=== PATIENT | male | born 1955 | race Caucasian/White ===

== ENCOUNTER 2016-06-02 10:21 | Emergency (ER) | payer OTHER ==
[2016-06-02] MEDS ORDERED: ASPIRIN 81 MG CHEW TABLET As Ordered ONE (11:21)
[2016-06-02 11:31] LABS: BASO % 0.7 % (0.0-1.0); EOS # 0.1 K/mm3 (0.0-0.50); EOS % 2.6 % (0.0-3.0); LARGE UNSTAINED CELL # 0.1 K/mm3 (0.0-0.4); LARGE UNSTAINED CELL % 2.9 % (0.0-4.0); LYMPH # 1.2 K/mm3 (1.5-4.5); MEAN CORPUSCULAR HEMOGLOBIN 28.9 pg (27.0-33.0); MEAN CORPUSCULAR HGB CONC 33.8 g/dl (32.0-36.5); MEAN CORPUSCULAR VOLUME 85.5 fl (80.0-96.0); MONO # 0.3 K/mm3 (0.0-0.8); MONO % 6.4 % (0.0-5.0); NEUTROPHILS # 2.5 K/mm3 (1.8-7.7); NEUTROPHILS % 58.4 % (36.0-66.0); PLATELET COUNT, AUTOMATED 204 k/mm3 (150-450); WHITE BLOOD COUNT 4.2 K/mm3 (4.0-10.0)
[2016-06-02 11:37] LABS: ANION GAP 9 MEQ/L (8-16); BLOOD UREA NITROGEN 15 MG/DL (7-18); CALCIUM LEVEL 8.9 MG/DL (8.8-10.2); CARBON DIOXIDE LEVEL 25 MEQ/L (21-32); CHLORIDE LEVEL 110 MEQ/L (98-107); CREATININE FOR GFR 1.06 MG/DL (0.70-1.30); GLOMERULAR FILTRATION RATE > 60.0 (>49); GLUCOSE, FASTING 101 MG/DL (80-110); INR 0.99; POTASSIUM SERUM 4.2 MEQ/L (3.5-5.1); SODIUM LEVEL 144 MEQ/L (136-145)
[2016-06-02] MEDS ORDERED: CLOPIDOGREL 300 MG TAB (PLAVIX) As Ordered ONE (12:27)
--- NOTE | 2016-06-02 12:50 | REP ---
PORTABLE CHEST: AP portable view of the chest is performed. COMPARISON: 02/15/2014 Mild bibasilar fibrotic changes are stable without evidence of acute infiltrate or pulmonary edema. The heart is normal in size. The mediastinal silhouette is unchanged. There are degenerative changes of the spine. IMPRESSION: No acute pulmonary disease. Signed by Santy Sanchez MD 06/02/2016 07:39 P
--- NOTE | 2016-06-02 14:12 | EDDOCDS ---
Nurse's Notes [facility] Name: Yaya Burton Age: 60 yrs Sex: Male : 1955 Arrival Date: 06/02/2016 Time: 10:21 Bed 7 Private MD: Ashley Franks Diagnosis: Unstable angina Presentation: 06/02 10:28 Red Flag criteria, patient assessed and taken directly to a bed. ck1 10:32 Presenting complaint: Patient states: sent from [facility]'s office to r/o MA. Has had jo3 intermittent chest tightness to mid anterior chest since Tuesday. also c/o intermittent nausea. Aspirin was not taken prior to arrival. Adult Sepsis Screening: The patient does not have new or worsening altered mentation. Patient's respiratory rate is less than 22. Systolic blood pressure is greater than 100. Patient has a qSOFA score of 0- Negative Sepsis Screen. Suicide/Homicide risk assessment- the patient denies having any suicidal and/or homicidal ideations and does not present with any other emotional, behavioral or mental health complaints. Status: Patient is not a creative services intern or dependent. Transition of care: patient was not received from another setting of care. 10:32 Acuity: NOHEMY Level 2 jo3 10:32 Method Of Arrival: Walkin/Carried/Asstd jo3 Triage Assessment: 10:35 General: Appears in no apparent distress, Behavior is appropriate for age, cooperative, jo3 pleasant. HIV screening NA for this visit Offered previously. Neurological: Level of Consciousness is awake, alert, Oriented to person, place, time. Respiratory: Airway is patent Respiratory effort is even, unlabored. Historical: - Allergies: cefadroxil; Omnicef; - Home Meds: 1. ranitidine HCl 150 mg Oral tab 1 tab 2 times per day - PMHx: Hiatal Hernia; GERD; - PSHx: Appendectomy; - The history from nurses notes was reviewed: and I agree with what is documented. - Social history: Smoking status: Patient states former smoker of tobacco. No barriers to communication noted, The patient speaks fluent Bolivian, Speaks appropriately for age. - Family history: Not pertinent. - : The pt / caregiver states he / she is not on anticoagulants. Home medication list is obtained from the patient. - Hospitalizations: : No recent hospitalization is reported. - Exposure Risk Screening:: None identified. - Immunization history:: All immunizations up-to-date. - Social history:: the patient is a non-smoker, the patient drinks alcohol. Screenin:23 Screening information is obtained from the patient. Fall risk: No risks identified. ead Assistance ADL's: requires no assistance with activities of daily living. Abuse/DV Screen: The patient / caregiver reports he/she is: not in a situation that causes fear, pain or injury. Nutritional screening: No deficits noted. Advance Directives: Currently, there is no health care proxy. There is no active DNR order. There is no living will. There is no Power of Newspaper Illustrator. home support is adequate. Assessment: 10:59 General: Appears in no apparent distress, comfortable, well nourished, well groomed, ead Behavior is appropriate for age, cooperative, pleasant. Pain: Location: chest Pain currently is 2 out of 10 on a pain scale. Neurological: Level of Consciousness is awake, alert, obeys commands, Oriented to person, place, time, Denies dizziness, headache. Cardiovascular: Capillary refill < 3 seconds in bilateral fingers Heart tones S1 S2 present Rhythm is sinus rhythm No ectopy. Respiratory: Airway is patent Respiratory effort is even, unlabored, Breath sounds are clear bilaterally. Denies shortness of breath. GI: Abdomen is obese, Bowel sounds present X 4 quads. Denies nausea, vomiting, pain. Derm: Skin is pink, warm & dry. 12:34 General: Appears in no apparent distress, comfortable, Behavior is appropriate for age, ead cooperative. Neurological: Level of Consciousness is awake, alert, obeys commands, Oriented to person, place, time. Cardiovascular: Rhythm is sinus bradycardia. Respiratory: Airway is patent Respiratory effort is even, unlabored. Derm: Skin is pink, warm & dry. 12:40 General: this nurse attempted to call nurse to nurse for transfer, nurse unavailable. ead will call back at a later time. 12:50 General: Nurse to nurse given to Lorna Pineda RN at [facility] ead 13:47 General: Appears in no apparent distress, comfortable, Behavior is appropriate for age, ead cooperative, pleasant. Pain: Denies pain. Neurological: Level of Consciousness is awake, alert, obeys commands, Oriented to person, place, time. Cardiovascular: Rhythm is sinus rhythm No ectopy. Chest pain is denied. Respiratory: Respiratory effort is even, unlabored, Denies shortness of breath. Derm: Skin is pink, warm & dry. 14:08 General: Appears in no apparent distress, comfortable, Behavior is appropriate for age, ead cooperative. Neurological: No deficits noted. Respiratory: Airway is patent Respiratory effort is even, unlabored. Derm: Skin is pink, warm & dry. Vital Signs: 10:22 BP 147 / 82; Pulse 70; Resp 16; Temp 97.7; Pulse Ox 98% on R/A; Weight 95.25 kg (R); jrd Height 5 ft. 11 in. (180.34 cm); Pain 2/10; 10:48 BP 148 / 96 (auto/); ead 10:49 Pulse 68 MON; Pulse Ox 96% ; ead 10:52 BP 147 / 97 (auto/); ead 10:55 Pulse 62 MON; Pulse Ox 98% ; ead 11:07 BP 132 / 87 (auto/); ead 11:09 Pulse 64 MON; Pulse Ox 97% ; ead 11:22 BP 136 / 85 (auto/); ead 11:22 Pulse 74 MON; Pulse Ox 95% ; ead 11:37 BP 151 / 101 (auto/); ead 11:37 Pulse 68 MON; Pulse Ox 97% ; ead 11:52 BP 158 / 98 (auto/); ead 11:52 Pulse 68 MON; Pulse Ox 96% ; ead 12:07 BP 151 / 95 (auto/); ead 12:07 Pulse 68 MON; Pulse Ox 97% ; ead 12:24 BP 143 / 90 (auto/); ead 12:24 Pulse 66 MON; Pulse Ox 97% ; ead 13:01 BP 158 / 99 (auto/); ead 13:07 Pulse 82 MON; Pulse Ox 95% ; ead 14:10 BP 144 / 90; Pulse 68; Resp 16; Temp 97.2; Pulse Ox 96% on 3 lpm NC; Pain 0/10; ead 10:22 Body Mass Index 29.29 (95.25 kg, 180.34 cm) [facility] Vitals: 10:22 Log In Time: June 02, 2016 at 10:09. jrd 10:24 RN notified that patient meets Red Flag criteria. jrd ED Course: 10:22 Patient visited by Travon Small PCA. jrd 10:22 Ashley Franks is Private Physician. jrd 10:22 Patient moved to Waiting jrd 10:24 Patient visited by Travon Small PCA. jrd 10:24 Patient moved to Pre RCE jrd 10:26 Annabelle Perez RN is Primary Nurse. jo3 10:26 Didi Hsu RN is Primary Nurse. jo3 10:26 Patient moved to 7 jo3 10:30 The patient / caregiver is instructed regarding the plan of care and ED course. Patient ead has correct armband on for positive identification. Placed in gown. Bed in low position. Call light in reach. Side rails up X2. Adult w/ patient. 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 Pulse ox on. NIBP on. 10:30 No procedures done that require assistance. ead 10:30 O2 via nasal cannula \T\ 3L/min. ead 10:32 EKG done. (by ED staff). Reviewed by Brandon Cervantes MD. nb2 10:34 Triage Initiated jo3 10:40 Patient visited by Kimberly Euceda. nb2 10:58 Brandon Cervantes MD is Attending Physician. pc 10:58 Inserted saline lock: 18 gauge in left antecubital area and blood collected. The ead patient tolerated the procedure well. 11:17 Patient visited by Brandon Cervantes MD. pc 12:18 Patient visited by Didi Hsu RN. ead 12:36 Primary Nurse role handed off by Annabelle Perez RN mcp 13:15 Inserted saline lock: 18 gauge in right antecubital area The patient tolerated the ead procedure well. 13:21 portable chest Returned. EDMS Administered Medications: 11:25 Drug: Aspirin 324 mg [aspirin 81 mg chewable tablet (4 tabs)] Route: PO; ead 12:34 Drug: Plavix - Clopidogrel 300 mg [clopidogrel 300 mg tablet (1 tabs)] Route: PO; ead Order Results: Lab Order: Basic Metabolic Profile; SPEC'M 06/02/16 10:55 Test: GLUCOSE, FASTING; Value: 101; Range: 80-110; Units: MG/DL; Status: F Test: BLOOD UREA NITROGEN; Value: 15; Range: 7-18; Units: MG/DL; Status: F Test: CREATININE FOR GFR; Value: 1.06; Range: 0.70-1.30; Units: MG/DL; Status: F Test: GLOMERULAR FILTRATION RATE; Value: > 60.0; Range: >49; Status: F Test: SODIUM LEVEL; Value: 144; Range: 136-145; Units: MEQ/L; Status: F Test: POTASSIUM SERUM; Value: 4.2; Range: 3.5-5.1; Units: MEQ/L; Status: F Test: CHLORIDE LEVEL; Value: 110; Range: 98-107; Abnormal: Above high normal; Units: MEQ/L; Status: F Test: CARBON DIOXIDE LEVEL; Value: 25; Range: 21-32; Units: MEQ/L; Status: F Test: ANION GAP; Value: 9; Range: 8-16; Units: MEQ/L; Status: F Test: CALCIUM LEVEL; Value: 8.9; Range: 8.8-10.2; Units: MG/DL; Status: F Test Note: ; Units are mL/min/1.73 m2 Chronic Kidney Disease Staging per NKF: Stage I & II GFR >=60 Normal to Mildly Decreased Stage III GFR 30-59 Moderately Decreased Stage IV GFR 15-29 Severely Decreased Stage V GFR <15 Very Little GFR Left ESRD GFR <15 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 Lab Order: CBC with Diff; SPEC'M 06/02/16 10:55 Test: WHITE BLOOD COUNT; Value: 4.2; Range: 4.0-10.0; Units: K/mm3; Status: F Test: RED BLOOD COUNT; Value: 5.22; Range: 4.30-6.10; Units: M/mm3; Status: F Test: HEMOGLOBIN; Value: 15.1; Range: 14.0-18.0; Units: g/dl; Status: F Test: HEMATOCRIT; Value: 44.6; Range: 42.0-52.0; Units: %; Status: F Test: MEAN CORPUSCULAR VOLUME; Value: 85.5; Range: 80.0-96.0; Units: fl; Status: F Test: MEAN CORPUSCULAR HEMOGLOBIN; Value: 28.9; Range: 27.0-33.0; Units: pg; Status: F Test: MEAN CORPUSCULAR HGB CONC; Value: 33.8; Range: 32.0-36.5; Units: g/dl; Status: F Test: RED CELL DISTRIBUTION WIDTH; Value: 12.0; Range: 11.5-14.5; Units: %; Status: F Test: PLATELET COUNT, AUTOMATED; Value: 204; Range: 150-450; Units: k/mm3; Status: F Test: NEUTROPHILS %; Value: 58.4; Range: 36.0-66.0; Units: %; Status: F Test: LYMPH %; Value: 29.0; Range: 24.0-44.0; Units: %; Status: F Test: MONO %; Value: 6.4; Range: 0.0-5.0; Abnormal: Above high normal; Units: %; Status: F Test: EOS %; Value: 2.6; Range: 0.0-3.0; Units: %; Status: F Test: BASO %; Value: 0.7; Range: 0.0-1.0; Units: %; Status: F Test: LARGE UNSTAINED CELL %; Value: 2.9; Range: 0.0-4.0; Units: %; Status: F Test: NEUTROPHILS #; Value: 2.5; Range: 1.8-7.7; Units: K/mm3; Status: F Test: LYMPH #; Value: 1.2; Range: 1.5-4.5; Abnormal: Below low normal; Units: K/mm3; Status: F Test: MONO #; Value: 0.3; Range: 0.0-0.8; Units: K/mm3; Status: F Test: EOS #; Value: 0.1; Range: 0.0-0.50; Units: K/mm3; Status: F Test: BASO #; Value: 0.0; Range: 0.0-0.2; Units: K/mm3; Status: F Test: LARGE UNSTAINED CELL #; Value: 0.1; Range: 0.0-0.4; Units: K/mm3; Status: F Lab Order: Cardiac Injury Profile; SPEC'M 06/02/16 10:55 Test: CPK CREATINE PHOSPHOKINASE; Value: 131; Range: 39-308; Units: U/L; Status: F Test: CK-MB VALUE MASS; Value: 2.5; Range: 0.0-3.6; Units: NG/ML; Status: F Test: MB/CK RELATIVE INDEX; Value: 1.90; Range: < OR =4; Status: F Test Note: ; DIAGNOSIS CRITERIA MMB ng/ml Relative Index (RI) NON-AMI < or = 5 N/A LUIS ZONE > 5 < or = 4 AMI > 5 > 4 Lab Order: Troponin; SPEC'M 06/02/16 10:55 Test: TROPONIN I; Value: < 0.02; Range: < 0.10; Units: NG/ML; Status: F Test Note: ; Troponin I Reference Interval for Blurr LOCI: 99th Percentile= 0.00-0.045 ng/ml Risk Stratification: <= 0.10 ng/ml Decreased Risk for Adverse Clinical Events. 0.10-1.50 ng/ml Increased Risk for Adverse Clinical Events. Evaluation of additional criterion and/or repeat testing in 2-6 hours is suggested to rule out myocardial damage. >= 1.50 ng/ml Indicative of Myocardial Injury. Lab Order: Pt & Aptt; SPEC'M 06/02/16 10:55 Test: PROTHROMBIN TIME; Value: 13.2; Range: 12.3-14.5; Units: SECONDS; Status: F Test: INR; Value: 0.99; Status: F Test: PARTIAL THROMBOPLASTIN TIME; Value: 29.0; Range: 26.6-37.1; Units: SECONDS; Status: F Test Note: ; THERAPUTIC HUMAN INR VALUES INDICATIONS NORMAL RANGES PROPHYLAXIS/TREATMENT OF: VENOUS THROMBOSIS 2.0-3.0 PULMONARY EMBOLISM 2.0-3.0 PREVENTION OF SYSTEMIC EMBOLISM FROM: TISSUE HEART VALVES 2.0-3.0 ACUTE MYOCARDIAL INFARCTION 2.0-3.0 VALVULAR HEART DISEASE 2.0-3.0 ATRIAL FIBRILLATION 2.0-3.0 MECHANICAL VALVES(HIGH RISK) 2.5-3.5 RECURRENT MYOCARDIAL INFARCTION 2.5-3.5 Radiology Order: portable chest Test: portable chest REASON FOR EXAMINATION: Chest Pain; ; PORTABLE CHEST:; ; AP portable view of the chest is performed.; ; COMPARISON: 02/15/2014; ; Mild bibasilar fibrotic changes are stable without evidence of acute infiltrate; or pulmonary edema. The heart is normal in size. The mediastinal silhouette is; unchanged. There are degenerative changes of the spine.; ; IMPRESSION:; No acute pulmonary disease.; ; ; ; Unreviewed; Outcome: 12:52 ER care complete, transfer ordered by Provider. 13:49 Discharge Assessment: Patient awake and alert. obeys commands, Oriented to person, ead place and time. patient administered narcotics - no. No special radiology studies were completed. 14:09 The following High Risk Discharge criteria are identified: None. Transferred to [facility]. by EMS ground [facility] report to accompanying personnel Stella Swain (basic) and Luz Whittington (medic). Condition: stable. Property :Personal belongings accompany Pt. 14:11 Patient left the ED. ead Signatures: Dispatcher [employer] EDMS Brandon Cervantes MD MD pc Peters, Mary RN Nissa Brandt mcpRN RN Stella Del AngelRN Didi PimentelRN Travon Clifford PCA PCA jrd Baart, Nicole nb2 ERROL
--- NOTE | 2016-06-02 14:12 | EDDOCDS ---
Physician Documentation [facility] Name: Yaya Burton Age: 60 yrs Sex: Male : 1955 Arrival Date: 06/02/2016 Time: 10:21 Bed 7 Private MD: Ashley Franks Disposition: 06/02 12:45 Critical Care: Critical care not applicable. pc Disposition: 06/02/16 12:52 Transfer ordered to [facility]. Diagnosis is Unstable angina. - Reason for transfer: Higher level of care. - Accepting physician is Dr. Zarco. - Condition is Stable. - Problem is new. - Symptoms are resolved. HPI: 12:45 This 60 yrs old Unknown Male presents to ER via Walkin/Carried/Asstd with complaints of pc Chest Tightness. 12:45 The history is obtained from the patient. 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 It lasted an hour and he "felt lousy for the rest of the day and night." The next day he flet better and had no symptoms. Yesterday while working on a vehicle, he developed the same symptoms, but worse. He had to rest a number of times to get relief. He felt "off last night" but slept well. This morning he didn't feel quite right but went to work. Again, while working on a vehicle, the symptoms recurred and were the worst yet. His brought him to the ED. The chest pain is described as a pressure, a tightness. It is located primarily in the substernal area. The pain does not radiate. The chest pain was associated with nausea, sweating. The patient's known risk factors for coronary artery disease include: none. The patient has not experienced similar symptoms in the past. The patient has been recently seen by their primary care provider, for a routine, regularly scheduled appointment. Historical: - Allergies: cefadroxil; Omnicef; - Home Meds: 1. ranitidine HCl 150 mg Oral tab 1 tab 2 times per day - PMHx: Hiatal Hernia; GERD; - PSHx: Appendectomy; - The history from nurses notes was reviewed: and I agree with what is documented. - Social history: Smoking status: Patient states former smoker of tobacco. No barriers to communication noted, The patient speaks fluent Wallisian, Speaks appropriately for age. - Family history: Not pertinent. - : The pt / caregiver states he / she is not on anticoagulants. Home medication list is obtained from the patient. - Hospitalizations: : No recent hospitalization is reported. - Exposure Risk Screening:: None identified. - Immunization history:: All immunizations up-to-date. - Social history:: the patient is a non-smoker, the patient drinks alcohol. ROS: 12:45 All systems are negative except as listed. The cardiovascular, respiratory, pc gastrointestinal and neurological components are also addressed in the HPI. Exam: 12:45 General Appearance: alert, no acute distress. pc 12:45 ENT: ear, nose and throat normal, pharynx normal. 12:45 Neck: supple, non-tender, no masses are appreciated. 12:45 Respiratory: no respiratory distress, normal breath sounds. 12:45 Cardiovascular: regular pulse rate, regular heart rhythm, normal heart sounds, equal and full pulses bilaterally. 12:45 Abdomen: soft, non-tender, no organomegaly, normal bowel sounds. 12:45 Skin: skin color is normal, warm, dry. 12:45 Extremities: The extremities have a grossly normal appearance, are non-tender, without acute ROM abnormalities. 12:45 Neuro: alert, oriented to person, place and time, cranial nerves normal as tested, no motor deficits, no sensory deficits. 12:45 Psych: normal mood. Vital Signs: 10:22 BP 147 / 82; Pulse 70; Resp 16; Temp 97.7; Pulse Ox 98% on R/A; Weight 95.25 kg / jrd 209.99 lbs (R); Height 5 ft. 11 in. (180.34 cm); Pain 2/10; 10:48 BP 148 / 96 (auto/); ead 10:49 Pulse 68 MON; Pulse Ox 96% ; ead 10:52 BP 147 / 97 (auto/); ead 10:55 Pulse 62 MON; Pulse Ox 98% ; ead 11:07 BP 132 / 87 (auto/); ead 11:09 Pulse 64 MON; Pulse Ox 97% ; ead 11:22 BP 136 / 85 (auto/); ead 11:22 Pulse 74 MON; Pulse Ox 95% ; ead 11:37 BP 151 / 101 (auto/); ead 11:37 Pulse 68 MON; Pulse Ox 97% ; ead 11:52 BP 158 / 98 (auto/); ead 11:52 Pulse 68 MON; Pulse Ox 96% ; ead 12:07 BP 151 / 95 (auto/); ead 12:07 Pulse 68 MON; Pulse Ox 97% ; ead 12:24 BP 143 / 90 (auto/); ead 12:24 Pulse 66 MON; Pulse Ox 97% ; ead 13:01 BP 158 / 99 (auto/); ead 13:07 Pulse 82 MON; Pulse Ox 95% ; ead 14:10 BP 144 / 90; Pulse 68; Resp 16; Temp 97.2; Pulse Ox 96% on 3 lpm NC; Pain 0/10; ead 10:22 Body Mass Index 29.29 (95.25 kg, 180.34 cm) jrd MDM: 10:28 ECG WITH READING ER PHYS+CARDIAG ordered. EDMS 11:18 Aspirin Chewable Tablet 324 mg PO once ordered. pc 11:18 Building Materials Sales Attendant/Pulse Ox/q 30 min VS ordered. pc 11:18 IV Saline Lock ordered. pc 11:18 Rhythm Strip to chart ordered. pc 11:19 Basic Metabolic Profile Ordered. EDMS 11:19 CBC with Diff Ordered. EDMS 11:20 Cardiac Injury Profile Ordered. EDMS 11:20 Troponin Ordered. EDMS 11:20 Pt & Aptt Ordered. EDMS 11:20 portable chest Ordered. EDMS 11:41 Basic Metabolic Profile Reviewed. pc 11:41 CBC with Diff Reviewed. pc 11:41 Cardiac Injury Profile Reviewed. pc 11:41 Troponin Reviewed. pc 11:41 Pt & Aptt Reviewed. pc 12:24 Plavix - Clopidogrel 300 mg PO once ordered. pc 12:45 Differential diagnosis: stable angina, unstable angina. Plan: labs, EKG, imaging, meds. pc The patient was medicated with aspirin in the Emergency Department. Data reviewed: old medical records, vital signs, nurses notes, EKG(s), lab test results, all radiology studies and available results. Test interpretation: EKG. 12:45 Test interpretation: LAB - all labs as ordered have been reviewed, interpreted and pc considered in the overall management of the clinical presentation; X-RAY - interpreted by Radiologist and personally reviewed, 1 view chest no acute disease. The patient has been re-examined and re-evaluated. The clinical presentation did not require any ED treatment or interventions. Physician consultation: Dr. Ty Mccartney regarding patient's condition, and he called Dr. Zarco at [facility], who has accepted him in transfer . Disposition: The historical points, examination findings, and any diagnostic results supporting the provided diagnosis, were discussed with the patient or legal guardian. The decision to transfer to the patient to another facility was explained, based on the need for a required specialist that [facility] does not immediately have available. EC:45 Rate is 64 beats/min. Rhythm is regular, Normal Sinus Rhythm. QRS [place] is Normal. CT pc interval is normal. QRS interval is normal. QT interval is normal. Q waves are Old in lead III. T waves are Normal. No ST changes noted. Clinical impression: Normal Sinus Rhythm and Inferior CO - age indeterminate. Administered Medications: 11:25 Drug: Aspirin 324 mg [aspirin 81 mg chewable tablet (4 tabs)] Route: PO; ead 12:34 Drug: Plavix - Clopidogrel 300 mg [clopidogrel 300 mg tablet (1 tabs)] Route: PO; ead Signatures: Dispatcher [employer] EDBrandon Ocasio MD MD pc Helmerci, JenniferRN RN Didi Rodriguez RN RN ead ERROL
--- NOTE | 2016-06-04 08:55 | ECGEPIP ---
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
--- NOTE | 2016-06-04 15:13 | EDDOCDS ---
Physician Documentation [facility] Name: Yaya Burton Age: 60 yrs Sex: Male : 1955 Arrival Date: 06/02/2016 Time: 10:21 Bed 7 Private MD: Ashley Franks Disposition: 06/02 12:45 Critical Care: Critical care not applicable. pc Disposition: 06/02/16 12:52 Transfer [facility] to [facility]. Diagnosis is Unstable angina. - Reason for transfer: Higher level of care. - Accepting physician is Dr. Zarco. - Condition is Stable. - Problem is new. - Symptoms are resolved. HPI: 12:45 This 60 yrs old Unknown Male presents to ER via Walkin/Carried/Asstd with complaints of pc Chest Tightness. 12:45 The history is obtained from the patient. 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 It lasted an hour and he "felt lousy for the rest of the day and night." The next day he flet better and had no symptoms. Yesterday while working on a vehicle, he developed the same symptoms, but worse. He had to rest a number of times to get relief. He felt "off last night" but slept well. This morning he didn't feel quite right but went to work. Again, while working on a vehicle, the symptoms recurred and were the worst yet. His brought him to the ED. The chest pain is described as a pressure, a tightness. It is located primarily in the substernal area. The pain does not radiate. The chest pain was associated with nausea, sweating. The patient's known risk factors for coronary artery disease include: none. The patient has not experienced similar symptoms in the past. The patient has been recently seen by their primary care provider, for a routine, regularly scheduled appointment. Historical: - Allergies: cefadroxil; Omnicef; - Home Meds: 1. ranitidine HCl 150 mg Oral tab 1 tab 2 times per day - PMHx: Hiatal Hernia; GERD; - PSHx: Appendectomy; - The history from nurses notes was reviewed: and I agree with what is documented. - Social history: Smoking status: Patient states former smoker of tobacco. No barriers to communication noted, The patient speaks fluent Norwegian, Speaks appropriately for age. - Family history: Not pertinent. - : The pt / caregiver states he / she is not on anticoagulants. Home medication list is obtained from the patient. - Hospitalizations: : No recent hospitalization is reported. - Exposure Risk Screening:: None identified. - Immunization history:: All immunizations up-to-date. - Social history:: the patient is a non-smoker, the patient drinks alcohol. ROS: 12:45 All systems are negative except as listed. The cardiovascular, respiratory, pc gastrointestinal and neurological components are also addressed in the HPI. Exam: 12:45 General Appearance: alert, no acute distress. pc 12:45 ENT: ear, nose and throat normal, pharynx normal. 12:45 Neck: supple, non-tender, no masses are appreciated. 12:45 Respiratory: no respiratory distress, normal breath sounds. 12:45 Cardiovascular: regular pulse rate, regular heart rhythm, normal heart sounds, equal and full pulses bilaterally. 12:45 Abdomen: soft, non-tender, no organomegaly, normal bowel sounds. 12:45 Skin: skin color is normal, warm, dry. 12:45 Extremities: The extremities have a grossly normal appearance, are non-tender, without acute ROM abnormalities. 12:45 Neuro: alert, oriented to person, place and time, cranial nerves normal as tested, no motor deficits, no sensory deficits. 12:45 Psych: normal mood. Vital Signs: 10:22 BP 147 / 82; Pulse 70; Resp 16; Temp 97.7; Pulse Ox 98% on R/A; Weight 95.25 kg / jrd 209.99 lbs (R); Height 5 ft. 11 in. (180.34 cm); Pain 2/10; 10:48 BP 148 / 96 (auto/); ead 10:49 Pulse 68 MON; Pulse Ox 96% ; ead 10:52 BP 147 / 97 (auto/); ead 10:55 Pulse 62 MON; Pulse Ox 98% ; ead 11:07 BP 132 / 87 (auto/); ead 11:09 Pulse 64 MON; Pulse Ox 97% ; ead 11:22 BP 136 / 85 (auto/); ead 11:22 Pulse 74 MON; Pulse Ox 95% ; ead 11:37 BP 151 / 101 (auto/); ead 11:37 Pulse 68 MON; Pulse Ox 97% ; ead 11:52 BP 158 / 98 (auto/); ead 11:52 Pulse 68 MON; Pulse Ox 96% ; ead 12:07 BP 151 / 95 (auto/); ead 12:07 Pulse 68 MON; Pulse Ox 97% ; ead 12:24 BP 143 / 90 (auto/); ead 12:24 Pulse 66 MON; Pulse Ox 97% ; ead 13:01 BP 158 / 99 (auto/); ead 13:07 Pulse 82 MON; Pulse Ox 95% ; ead 14:10 BP 144 / 90; Pulse 68; Resp 16; Temp 97.2; Pulse Ox 96% on 3 lpm NC; Pain 0/10; ead 10:22 Body Mass Index 29.29 (95.25 kg, 180.34 cm) jrd MDM: 10:28 ECG WITH READING ER PHYS+CARDIAG ordered. EDMS 11:18 Aspirin Chewable Tablet 324 mg PO once ordered. pc 11:18 Cashier Greeter/Pulse Ox/q 30 min VS ordered. pc 11:18 IV Saline Lock ordered. pc 11:18 Rhythm Strip to chart ordered. pc 11:19 Basic Metabolic Profile Ordered. EDMS 11:19 CBC with Diff Ordered. EDMS 11:20 Cardiac Injury Profile Ordered. EDMS 11:20 Troponin Ordered. EDMS 11:20 Pt & Aptt Ordered. EDMS 11:20 portable chest Ordered. EDMS 11:41 Basic Metabolic Profile Reviewed. pc 11:41 CBC with Diff Reviewed. pc 11:41 Cardiac Injury Profile Reviewed. pc 11:41 Troponin Reviewed. pc 11:41 Pt & Aptt Reviewed. pc 12:24 Plavix - Clopidogrel 300 mg PO once ordered. pc 12:45 Differential diagnosis: stable angina, unstable angina. Plan: labs, EKG, imaging, meds. pc The patient was medicated with aspirin in the Emergency Department. Data reviewed: old medical records, vital signs, nurses notes, EKG(s), lab test results, all radiology studies and available results. Test interpretation: EKG. 12:45 Test interpretation: LAB - all labs as ordered have been reviewed, interpreted and pc considered in the overall management of the clinical presentation; X-RAY - interpreted by Radiologist and personally reviewed, 1 view chest no acute disease. The patient has been re-examined and re-evaluated. The clinical presentation did not require any ED treatment or interventions. Physician consultation: Dr. Ty Mccartney regarding patient's condition, and he called Dr. Zarco at [facility], who has accepted him in transfer . Disposition: The historical points, examination findings, and any diagnostic results supporting the provided diagnosis, were discussed with the patient or legal guardian. The decision to transfer to the patient to another facility was explained, based on the need for a required specialist that [facility] does not immediately have available. 14:13 Financial registration complete. 15 14:14 [facility] Payment Agreement was scanned into [email or web address] and attached to record. [facility] 06/03 11:26 ECG/EKG was scanned into [employer] and attached to record. 11:27 Trend VS was scanned into [employer] and attached to record. EC/01 12:45 Rate is 64 beats/min. Rhythm is regular, Normal Sinus Rhythm. QRS [place] is Normal. WI pc interval is normal. QRS interval is normal. QT interval is normal. Q waves are Old in lead III. T waves are Normal. No ST changes noted. Clinical impression: Normal Sinus Rhythm and Inferior AL - age indeterminate. Administered Medications: 11:25 Drug: Aspirin 324 mg [aspirin 81 mg chewable tablet (4 tabs)] Route: PO; ead 12:34 Drug: Plavix - Clopidogrel 300 mg [clopidogrel 300 mg tablet (1 tabs)] Route: PO; ead Signatures: Dispatcher [employer] EDMS Brandon Cervantes MD MD pc Barnhardt, Gloria, Stella Hawkins RN RN jo3 McGrath, Marlynn mm15 Didi Hsu RN RN ead The chart was reviewed and I authenticate all verbal orders and agree with the evaluation and treatment provided.Attachments: 14:14 [facility] Payment Agreement mm15 06/03 11:26 ECG/EKG Chart Complete MTDD
--- NOTE | 2016-06-04 15:13 | EDDOCDS ---
Nurse's Notes [facility] Name: Tony Burton Age: 60 yrs Sex: Male : 1955 Arrival Date: 06/02/2016 Time: 10:21 Bed 7 Private MD: Ashley Franks Diagnosis: Unstable angina Presentation: 06/02 10:28 Red Flag criteria, patient assessed and taken directly to a bed. ck1 10:32 Presenting complaint: Patient states: sent from [place]'s office to r/o [place]. Has had jo3 intermittent chest tightness to mid anterior chest since Tuesday. also c/o intermittent nausea. Aspirin was not taken prior to arrival. Adult Sepsis Screening: The patient does not have new or worsening altered mentation. Patient's respiratory rate is less than 22. Systolic blood pressure is greater than 100. Patient has a qSOFA score of 0- Negative Sepsis Screen. Suicide/Homicide risk assessment- the patient denies having any suicidal and/or homicidal ideations and does not present with any other emotional, behavioral or mental health complaints. Status: Patient is not a business services officer or dependent. Transition of care: patient was not received from another setting of care. 10:32 Acuity: NOHEMY Level 2 jo3 10:32 Method Of Arrival: Walkin/Carried/Asstd jo3 Triage Assessment: 10:35 General: Appears in no apparent distress, Behavior is appropriate for age, cooperative, jo3 pleasant. HIV screening NA for this visit Offered previously. Neurological: Level of Consciousness is awake, alert, Oriented to person, place, time. Respiratory: Airway is patent Respiratory effort is even, unlabored. Historical: - Allergies: cefadroxil; Omnicef; - Home Meds: 1. ranitidine HCl 150 mg Oral tab 1 tab 2 times per day - PMHx: Hiatal Hernia; GERD; - PSHx: Appendectomy; - The history from nurses notes was reviewed: and I agree with what is documented. - Social history: Smoking status: Patient states former smoker of tobacco. No barriers to communication noted, The patient speaks fluent Bhutanese, Speaks appropriately for age. - Family history: Not pertinent. - : The pt / caregiver states he / she is not on anticoagulants. Home medication list is obtained from the patient. - Hospitalizations: : No recent hospitalization is reported. - Exposure Risk Screening:: None identified. - Immunization history:: All immunizations up-to-date. - Social history:: the patient is a non-smoker, the patient drinks alcohol. Screenin:23 Screening information is obtained from the patient. Fall risk: No risks identified. ead Assistance ADL's: requires no assistance with activities of daily living. Abuse/DV Screen: The patient / caregiver reports he/she is: not in a situation that causes fear, pain or injury. Nutritional screening: No deficits noted. Advance Directives: Currently, there is no health care proxy. There is no active DNR order. There is no living will. There is no Power of Spinning Mule Operator. home support is adequate. Assessment: 10:59 General: Appears in no apparent distress, comfortable, well nourished, well groomed, ead Behavior is appropriate for age, cooperative, pleasant. Pain: Location: chest Pain currently is 2 out of 10 on a pain scale. Neurological: Level of Consciousness is awake, alert, obeys commands, Oriented to person, place, time, Denies dizziness, headache. Cardiovascular: Capillary refill < 3 seconds in bilateral fingers Heart tones S1 S2 present Rhythm is sinus rhythm No ectopy. Respiratory: Airway is patent Respiratory effort is even, unlabored, Breath sounds are clear bilaterally. Denies shortness of breath. GI: Abdomen is obese, Bowel sounds present X 4 quads. Denies nausea, vomiting, pain. Derm: Skin is pink, warm & dry. 12:34 General: Appears in no apparent distress, comfortable, Behavior is appropriate for age, ead cooperative. Neurological: Level of Consciousness is awake, alert, obeys commands, Oriented to person, place, time. Cardiovascular: Rhythm is sinus bradycardia. Respiratory: Airway is patent Respiratory effort is even, unlabored. Derm: Skin is pink, warm & dry. 12:40 General: this nurse attempted to call nurse to nurse for transfer, nurse unavailable. ead will call back at a later time. 12:50 General: Nurse to nurse given to Lorna Pineda RN at [facility] ead 13:47 General: Appears in no apparent distress, comfortable, Behavior is appropriate for age, ead cooperative, pleasant. Pain: Denies pain. Neurological: Level of Consciousness is awake, alert, obeys commands, Oriented to person, place, time. Cardiovascular: Rhythm is sinus rhythm No ectopy. Chest pain is denied. Respiratory: Respiratory effort is even, unlabored, Denies shortness of breath. Derm: Skin is pink, warm & dry. 14:08 General: Appears in no apparent distress, comfortable, Behavior is appropriate for age, ead cooperative. Neurological: No deficits noted. Respiratory: Airway is patent Respiratory effort is even, unlabored. Derm: Skin is pink, warm & dry. Vital Signs: 10:22 BP 147 / 82; Pulse 70; Resp 16; Temp 97.7; Pulse Ox 98% on R/A; Weight 95.25 kg (R); jrd Height 5 ft. 11 in. (180.34 cm); Pain 2/10; 10:48 BP 148 / 96 (auto/); ead 10:49 Pulse 68 MON; Pulse Ox 96% ; ead 10:52 BP 147 / 97 (auto/); ead 10:55 Pulse 62 MON; Pulse Ox 98% ; ead 11:07 BP 132 / 87 (auto/); ead 11:09 Pulse 64 MON; Pulse Ox 97% ; ead 11:22 BP 136 / 85 (auto/); ead 11:22 Pulse 74 MON; Pulse Ox 95% ; ead 11:37 BP 151 / 101 (auto/); ead 11:37 Pulse 68 MON; Pulse Ox 97% ; ead 11:52 BP 158 / 98 (auto/); ead 11:52 Pulse 68 MON; Pulse Ox 96% ; ead 12:07 BP 151 / 95 (auto/); ead 12:07 Pulse 68 MON; Pulse Ox 97% ; ead 12:24 BP 143 / 90 (auto/); ead 12:24 Pulse 66 MON; Pulse Ox 97% ; ead 13:01 BP 158 / 99 (auto/); ead 13:07 Pulse 82 MON; Pulse Ox 95% ; ead 14:10 BP 144 / 90; Pulse 68; Resp 16; Temp 97.2; Pulse Ox 96% on 3 lpm NC; Pain 0/10; ead 10:22 Body Mass Index 29.29 (95.25 kg, 180.34 cm) [facility] Vitals: 10:22 Log In Time: June 02, 2016 at 10:09. jrd 10:24 RN notified that patient meets Red Flag criteria. jrd ED Course: 10:22 Patient visited by Travon Small PCA. jrd 10:22 Ashley Franks is Private Physician. jrd 10:22 Patient moved to Waiting jrd 10:24 Patient visited by Travon Small PCA. jrd 10:24 Patient moved to Pre RCE jrd 10:26 Annabelle Perez,FAITH is Primary Nurse. jo3 10:26 Didi Hsu,FAITH is Primary Nurse. jo3 10:26 Patient moved to 7 jo3 10:30 The patient / caregiver is instructed regarding the plan of care and ED course. Patient ead has correct armband on for positive identification. Placed in gown. Bed in low position. Call light in reach. Side rails up X2. Adult w/ patient. crate maker on. Pulse ox on. NIBP on. 10:30 No procedures done that require assistance. ead 10:30 O2 via nasal cannula \T\ 3L/min. ead 10:32 EKG done. (by ED staff). Reviewed by Brandon Cervantes MD. nb2 10:34 Triage Initiated jo3 10:40 Patient visited by Kimberly Euceda. nb2 10:58 Brandon Cervantes MD is Attending Physician. pc 10:58 Inserted saline lock: 18 gauge in left antecubital area and blood collected. The ead patient tolerated the procedure well. 11:17 Patient visited by Brandon Cervantes MD. pc 12:18 Patient visited by Didi Hsu RN. ead 12:36 Primary Nurse role handed off by Annabelle Perez RN mcp 13:15 Inserted saline lock: 18 gauge in right antecubital area The patient tolerated the ead procedure well. 13:21 portable chest Returned. EDMS 14:14 [facility] Payment Agreement was scanned into [employer] and attached to record. mm15 15:09 Patient name changed from Tony\S\\S\Juiliani\S\ to Tony\S\ \S\Juiliani. EDMS 02 11:26 ECG/EKG was scanned into [employer] and attached to record. gb 11:27 Trend VS was scanned into [employer] and attached to record. gb 02 09:17 EKG-ADULT Returned. EDMS Administered Medications: 06/02 11:25 Drug: Aspirin 324 mg [aspirin 81 mg chewable tablet (4 tabs)] Route: PO; ead 12:34 Drug: Plavix - Clopidogrel 300 mg [clopidogrel 300 mg tablet (1 tabs)] Route: PO; ead Attachments: 11:27 Trend VS gb Order Results: Lab Order: Basic Metabolic Profile; SPEC'M 06/02/16 10:55 Test: GLUCOSE, FASTING; Value: 101; Range: 80-110; Units: MG/DL; Status: F Test: BLOOD UREA NITROGEN; Value: 15; Range: 7-18; Units: MG/DL; Status: F Test: CREATININE FOR GFR; Value: 1.06; Range: 0.70-1.30; Units: MG/DL; Status: F Test: GLOMERULAR FILTRATION RATE; Value: > 60.0; Range: >49; Status: F Test: SODIUM LEVEL; Value: 144; Range: 136-145; Units: MEQ/L; Status: F Test: POTASSIUM SERUM; Value: 4.2; Range: 3.5-5.1; Units: MEQ/L; Status: F Test: CHLORIDE LEVEL; Value: 110; Range: 98-107; Abnormal: Above high normal; Units: MEQ/L; Status: F Test: CARBON DIOXIDE LEVEL; Value: 25; Range: 21-32; Units: MEQ/L; Status: F Test: ANION GAP; Value: 9; Range: 8-16; Units: MEQ/L; Status: F Test: CALCIUM LEVEL; Value: 8.9; Range: 8.8-10.2; Units: MG/DL; Status: F Test Note: ; Units are mL/min/1.73 m2 Chronic Kidney Disease Staging per NKF: Stage I & II GFR >=60 Normal to Mildly Decreased Stage III GFR 30-59 Moderately Decreased Stage IV GFR 15-29 Severely Decreased Stage V GFR <15 Very Little GFR Left ESRD GFR <15 on RESIDENTIAL REMODELING SUBCONTRACTOR Lab Order: CBC with Diff; SPEC'M 06/02/16 10:55 Test: WHITE BLOOD COUNT; Value: 4.2; Range: 4.0-10.0; Units: K/mm3; Status: F Test: RED BLOOD COUNT; Value: 5.22; Range: 4.30-6.10; Units: M/mm3; Status: F Test: HEMOGLOBIN; Value: 15.1; Range: 14.0-18.0; Units: g/dl; Status: F Test: HEMATOCRIT; Value: 44.6; Range: 42.0-52.0; Units: %; Status: F Test: MEAN CORPUSCULAR VOLUME; Value: 85.5; Range: 80.0-96.0; Units: fl; Status: F Test: MEAN CORPUSCULAR HEMOGLOBIN; Value: 28.9; Range: 27.0-33.0; Units: pg; Status: F Test: MEAN CORPUSCULAR HGB CONC; Value: 33.8; Range: 32.0-36.5; Units: g/dl; Status: F Test: RED CELL DISTRIBUTION WIDTH; Value: 12.0; Range: 11.5-14.5; Units: %; Status: F Test: PLATELET COUNT, AUTOMATED; Value: 204; Range: 150-450; Units: k/mm3; Status: F Test: NEUTROPHILS %; Value: 58.4; Range: 36.0-66.0; Units: %; Status: F Test: LYMPH %; Value: 29.0; Range: 24.0-44.0; Units: %; Status: F Test: MONO %; Value: 6.4; Range: 0.0-5.0; Abnormal: Above high normal; Units: %; Status: F Test: EOS %; Value: 2.6; Range: 0.0-3.0; Units: %; Status: F Test: BASO %; Value: 0.7; Range: 0.0-1.0; Units: %; Status: F Test: LARGE UNSTAINED CELL %; Value: 2.9; Range: 0.0-4.0; Units: %; Status: F Test: NEUTROPHILS #; Value: 2.5; Range: 1.8-7.7; Units: K/mm3; Status: F Test: LYMPH #; Value: 1.2; Range: 1.5-4.5; Abnormal: Below low normal; Units: K/mm3; Status: F Test: MONO #; Value: 0.3; Range: 0.0-0.8; Units: K/mm3; Status: F Test: EOS #; Value: 0.1; Range: 0.0-0.50; Units: K/mm3; Status: F Test: BASO #; Value: 0.0; Range: 0.0-0.2; Units: K/mm3; Status: F Test: LARGE UNSTAINED CELL #; Value: 0.1; Range: 0.0-0.4; Units: K/mm3; Status: F Lab Order: Cardiac Injury Profile; [facility] 06/02/16 10:55 Test: CPK CREATINE PHOSPHOKINASE; Value: 131; Range: 39-308; Units: U/L; Status: F Test: CK-MB VALUE MASS; Value: 2.5; Range: 0.0-3.6; Units: NG/ML; Status: F Test: MB/CK RELATIVE INDEX; Value: 1.90; Range: < OR =4; Status: F Test Note: ; DIAGNOSIS CRITERIA MMB ng/ml Relative Index (RI) NON-AMI < or = 5 N/A SANCHEZ ZONE > 5 < or = 4 AMI > 5 > 4 Lab Order: Troponin; [facility] 06/02/16 10:55 Test: TROPONIN I; Value: < 0.02; Range: < 0.10; Units: NG/ML; Status: F Test Note: ; Troponin I Reference Interval for [employer] LOCI: 99th Percentile= 0.00-0.045 ng/ml Risk Stratification: <= 0.10 ng/ml Decreased Risk for Adverse Clinical Events. 0.10-1.50 ng/ml Increased Risk for Adverse Clinical Events. Evaluation of additional criterion and/or repeat testing in 2-6 hours is suggested to rule out myocardial damage. >= 1.50 ng/ml Indicative of Myocardial Injury. Lab Order: Pt & Aptt; [facility] 06/02/16 10:55 Test: PROTHROMBIN TIME; Value: 13.2; Range: 12.3-14.5; Units: SECONDS; Status: F Test: INR; Value: 0.99; Status: F Test: PARTIAL THROMBOPLASTIN TIME; Value: 29.0; Range: 26.6-37.1; Units: SECONDS; Status: F Test Note: ; THERAPUTIC HUMAN INR VALUES INDICATIONS NORMAL RANGES PROPHYLAXIS/TREATMENT OF: VENOUS THROMBOSIS 2.0-3.0 PULMONARY EMBOLISM 2.0-3.0 PREVENTION OF SYSTEMIC EMBOLISM FROM: TISSUE HEART VALVES 2.0-3.0 ACUTE MYOCARDIAL INFARCTION 2.0-3.0 VALVULAR HEART DISEASE 2.0-3.0 ATRIAL FIBRILLATION 2.0-3.0 MECHANICAL VALVES(HIGH RISK) 2.5-3.5 RECURRENT MYOCARDIAL INFARCTION 2.5-3.5 Radiology Order: EKG-ADULT Test: EKG-ADULT REASON FOR EXAMINATION: Chest Pain; Stationary ECG Study; [facility] - ED; ; Test Date: 2016-06-02; Pat Name: TONY BURTON Department:; Room: -; 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; : 1955 Requested By: Brandon White; Order Number: [id number] Reading MD: Val Saini; Measurements; Intervals [place]; Rate: 64 P: 57; CA: 180 QRS: 12; QRSD: 92 T: 18; QT: 379; QTc: 392; Interpretive Statements; SINUS RHYTHM; LOW VOLTAGE LIMB; NO PRIOR FOR COMPARISON; Electronically Signed On 06-04-2016 8:55:20 EST by Val Saini; Radiology Order: portable chest Test: portable chest REASON FOR EXAMINATION: Chest Pain; PORTABLE CHEST:; ; AP portable view of the chest is performed.; ; COMPARISON: 02/15/2014; ; Mild bibasilar fibrotic changes are stable without evidence of acute infiltrate; or pulmonary edema. The heart is normal in size. The mediastinal silhouette is; unchanged. There are degenerative changes of the spine.; ; IMPRESSION:; ; No acute pulmonary disease.; ; ; Signed by; Santy Sanchez MD 06/02/2016 07:39 P; Outcome: 06/02 12:52 ER care complete, transfer ordered by Provider. pc 13:49 Discharge Assessment: Patient awake and alert. obeys commands, Oriented to person, ead place and time. patient administered narcotics - no. No special radiology studies were completed. 14:09 The following High Risk Discharge criteria are identified: None. Transferred to [facility]. by EMS ground [place] ambulance report to accompanying personnel Stella Swain (basic) and Luz Whittington (medic). Condition: stable. Property :Personal belongings accompany Pt. 14:11 Patient left the ED. ead Signatures: Dispatcher [employer] EDMS Brandon Cervantes MD MD pc Peters, Mary, RN RN Migdalia Hernandez, Nissa Valdes RN RN ck1 Stella AndersenRN RN Terrie Gregory mm15 Didi HsuRN RN Travon Bustillos PCA DOUBLER HELPER Kimberly Pak2 Chart Complete MTDD
--- NOTE | 2016-06-04 15:13 | EDDOCDS ---
Physician Documentation [facility] Name: Yaya Burton Age: 60 yrs Sex: Male : 1955 Arrival Date: 06/02/2016 Time: 10:21 Bed 7 Private MD: Ashley Franks Disposition: 06/02 12:45 Critical Care: Critical care not applicable. pc Disposition: 06/02/16 12:52 Transfer ordered to [facility]. Diagnosis is Unstable angina. - Reason for transfer: Higher level of care. - Accepting physician is Dr. Zarco. - Condition is Stable. - Problem is new. - Symptoms are resolved. HPI: 12:45 This 60 yrs old Unknown Male presents to ER via Walkin/Carried/Asstd with complaints of pc Chest Tightness. 12:45 The history is obtained from the patient. 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 It lasted an hour and he "felt lousy for the rest of the day and night." The next day he flet better and had no symptoms. Yesterday while working on a vehicle, he developed the same symptoms, but worse. He had to rest a number of times to get relief. He felt "off last night" but slept well. This morning he didn't feel quite right but went to work. Again, while working on a vehicle, the symptoms recurred and were the worst yet. His brought him to the ED. The chest pain is described as a pressure, a tightness. It is located primarily in the substernal area. The pain does not radiate. The chest pain was associated with nausea, sweating. The patient's known risk factors for coronary artery disease include: none. The patient has not experienced similar symptoms in the past. The patient has been recently seen by their primary care provider, for a routine, regularly scheduled appointment. Historical: - Allergies: cefadroxil; Omnicef; - Home Meds: 1. ranitidine HCl 150 mg Oral tab 1 tab 2 times per day - PMHx: Hiatal Hernia; GERD; - PSHx: Appendectomy; - The history from nurses notes was reviewed: and I agree with what is documented. - Social history: Smoking status: Patient states former smoker of tobacco. No barriers to communication noted, The patient speaks fluent Indonesian, Speaks appropriately for age. - Family history: Not pertinent. - : The pt / caregiver states he / she is not on anticoagulants. Home medication list is obtained from the patient. - Hospitalizations: : No recent hospitalization is reported. - Exposure Risk Screening:: None identified. - Immunization history:: All immunizations up-to-date. - Social history:: the patient is a non-smoker, the patient drinks alcohol. ROS: 12:45 All systems are negative except as listed. The cardiovascular, respiratory, pc gastrointestinal and neurological components are also addressed in the HPI. Exam: 12:45 General Appearance: alert, no acute distress. pc 12:45 ENT: ear, nose and throat normal, pharynx normal. 12:45 Neck: supple, non-tender, no masses are appreciated. 12:45 Respiratory: no respiratory distress, normal breath sounds. 12:45 Cardiovascular: regular pulse rate, regular heart rhythm, normal heart sounds, equal and full pulses bilaterally. 12:45 Abdomen: soft, non-tender, no organomegaly, normal bowel sounds. 12:45 Skin: skin color is normal, warm, dry. 12:45 Extremities: The extremities have a grossly normal appearance, are non-tender, without acute ROM abnormalities. 12:45 Neuro: alert, oriented to person, place and time, cranial nerves normal as tested, no motor deficits, no sensory deficits. 12:45 Psych: normal mood. Vital Signs: 10:22 BP 147 / 82; Pulse 70; Resp 16; Temp 97.7; Pulse Ox 98% on R/A; Weight 95.25 kg / jrd 209.99 lbs (R); Height 5 ft. 11 in. (180.34 cm); Pain 2/10; 10:48 BP 148 / 96 (auto/); ead 10:49 Pulse 68 MON; Pulse Ox 96% ; ead 10:52 BP 147 / 97 (auto/); ead 10:55 Pulse 62 MON; Pulse Ox 98% ; ead 11:07 BP 132 / 87 (auto/); ead 11:09 Pulse 64 MON; Pulse Ox 97% ; ead 11:22 BP 136 / 85 (auto/); ead 11:22 Pulse 74 MON; Pulse Ox 95% ; ead 11:37 BP 151 / 101 (auto/); ead 11:37 Pulse 68 MON; Pulse Ox 97% ; ead 11:52 BP 158 / 98 (auto/); ead 11:52 Pulse 68 MON; Pulse Ox 96% ; ead 12:07 BP 151 / 95 (auto/); ead 12:07 Pulse 68 MON; Pulse Ox 97% ; ead 12:24 BP 143 / 90 (auto/); ead 12:24 Pulse 66 MON; Pulse Ox 97% ; ead 13:01 BP 158 / 99 (auto/); ead 13:07 Pulse 82 MON; Pulse Ox 95% ; ead 14:10 BP 144 / 90; Pulse 68; Resp 16; Temp 97.2; Pulse Ox 96% on 3 lpm NC; Pain 0/10; ead 10:22 Body Mass Index 29.29 (95.25 kg, 180.34 cm) jrd MDM: 10:28 ECG WITH READING ER PHYS+CARDIAG ordered. EDMS 11:18 Aspirin Chewable Tablet 324 mg PO once ordered. pc 11:18 Cooperative Extension Agent/Pulse Ox/q 30 min VS ordered. pc 11:18 IV Saline Lock ordered. pc 11:18 Rhythm Strip to chart ordered. pc 11:19 Basic Metabolic Profile Ordered. EDMS 11:19 CBC with Diff Ordered. EDMS 11:20 Cardiac Injury Profile Ordered. EDMS 11:20 Troponin Ordered. EDMS 11:20 Pt & Aptt Ordered. EDMS 11:20 portable chest Ordered. EDMS 11:41 Basic Metabolic Profile Reviewed. pc 11:41 CBC with Diff Reviewed. pc 11:41 Cardiac Injury Profile Reviewed. pc 11:41 Troponin Reviewed. pc 11:41 Pt & Aptt Reviewed. pc 12:24 Plavix - Clopidogrel 300 mg PO once ordered. pc 12:45 Differential diagnosis: stable angina, unstable angina. Plan: labs, EKG, imaging, meds. pc The patient was medicated with aspirin in the Emergency Department. Data reviewed: old medical records, vital signs, nurses notes, EKG(s), lab test results, all radiology studies and available results. Test interpretation: EKG. 12:45 Test interpretation: LAB - all labs as ordered have been reviewed, interpreted and pc considered in the overall management of the clinical presentation; X-RAY - interpreted by Radiologist and personally reviewed, 1 view chest no acute disease. The patient has been re-examined and re-evaluated. The clinical presentation did not require any ED treatment or interventions. Physician consultation: Dr. Ty Mccartney regarding patient's condition, and he called Dr. Zarco at [facility], who has accepted him in transfer . Disposition: The historical points, examination findings, and any diagnostic results supporting the provided diagnosis, were discussed with the patient or legal guardian. The decision to transfer to the patient to another facility was explained, based on the need for a required specialist that [facility] does not immediately have available. 14:13 Financial registration complete. 15 14:14 [facility] Payment Agreement was scanned into [employer] and attached to record. [facility] 06/03 11:26 ECG/EKG was scanned into [employer] and attached to record. 11:27 Trend VS was scanned into [employer] and attached to record. EC/01 12:45 Rate is 64 beats/min. Rhythm is regular, Normal Sinus Rhythm. QRS [place] is Normal. [place] pc interval is normal. QRS interval is normal. QT interval is normal. Q waves are Old in lead III. T waves are Normal. No ST changes noted. Clinical impression: Normal Sinus Rhythm and Inferior OK - age indeterminate. Administered Medications: 11:25 Drug: Aspirin 324 mg [aspirin 81 mg chewable tablet (4 tabs)] Route: PO; ead 12:34 Drug: Plavix - Clopidogrel 300 mg [clopidogrel 300 mg tablet (1 tabs)] Route: PO; ead Signatures: Dispatcher [employer] EDMS Brandon Cervantes MD MD pc Barnhardt, Gloria, Stella Hawkins RN RN jo3 McGrath, Marlynn [id number] Didi Hsu RN RN ead The chart was reviewed and I authenticate all verbal orders and agree with the evaluation and treatment provided.Attachments: 14:14 [facility] Payment Agreement [id number] 06/03 11:26 ECG/EKG Chart Complete MTDD
== END 2016-06-02 14:11 | disposition short-term general hospital (02) ==
LOC: M ED 10:21
DX: I20.0 Unstable angina (principal); K44.9 Diaphragmatic hernia without obstruction or gangrene; K21.9 Gastro-esophageal reflux disease without esophagitis; Z87.891 Personal history of nicotine dependence; Z79.899 Other long term (current) drug therapy; Z88.1 Allergy status to other antibiotic agents

== ENCOUNTER → 2017-10-26 | Outpatient (CLI) | payer OTHER | LOC: M RAD 07:38 | DX: I85.00 Esophageal varices without bleeding (principal) | CPT/HCPCS: 76705 ==

== ENCOUNTER 2018-09-24 10:40 | Emergency (ER) | payer OTHER ==
[~2018-09-24] VITALS: Ht 180.3 cm; Wt 102.3 kg
[2018-09-24] MEDS ORDERED: OMEP-218 PO (11:52)
[2018-09-24] MEDS ORDERED: DOXYCYCLINE HYCLATE 100 MG TAB PO ONE (12:00)
[2018-09-24 12:01] VITALS: BP 133/100
[2018-09-28 00:11] LABS: Lyme Disease IgG/IgM Antibodie <0.91 ISR (0.00-0.90); Lyme Disease IgM Ab Quantitati <0.80 index (0.00-0.79)
== END 2018-09-24 12:13 | disposition home or self-care (01) ==
LOC: M ED 10:40
DX: S30.861A Insect bite (nonvenomous) of abdominal wall, initial encounter (principal); W57.XXXA Bitten or stung by nonvenomous insect and other nonvenomous arthropods, initial encounter; Y92.9 Unspecified place or not applicable; Y93.9 Activity, unspecified; Y99.9 Unspecified external cause status; K21.9 Gastro-esophageal reflux disease without esophagitis; K44.9 Diaphragmatic hernia without obstruction or gangrene; K76.0 Fatty (change of) liver, not elsewhere classified; Z79.899 Other long term (current) drug therapy; Z88.1 Allergy status to other antibiotic agents

== ENCOUNTER → 2018-09-27 | Outpatient (CLI) | payer OTHER ==
[~2018-09-27] MED LIST: OMEP-218 PO
--- NOTE | 2018-09-27 09:56 | REP ---
RIGHT UPPER QUADRANT ULTRASOUND: Real-time sonographic evaluation of the right upper quadrant performed. Gallbladder demonstrates no evidence of intraluminal sludge or calculi, wall thickening, or pericholecystic fluid. There is no intrahepatic or extrahepatic biliary dilatation, common bile duct measuring 4 mm. Liver is diffusely echogenic compatible with diffuse fibrofatty infiltration. No gross liver or pancreatic mass is seen. Pancreas is not optimally seen due to overlying bowel gas. Right kidney demonstrates no hydronephrosis with normal size 11.1 cm in length. IMPRESSION: Diffuse fibrofatty infiltration of the liver. Electronically Signed by Santy Sanchez MD 09/27/2018 02:11 P
[2018-09-27 10:22] LABS: ALT/SGPT 48 U/L (12-78); BILIRUBIN,DIRECT 0.2 MG/DL (0.0-0.2); BILIRUBIN,TOTAL 0.6 MG/DL (0.2-1.0); BLOOD UREA NITROGEN 15 MG/DL (7-18); CALCIUM LEVEL 9.1 MG/DL (8.8-10.2); CARBON DIOXIDE LEVEL 26 MEQ/L (21-32); CHLORIDE LEVEL 110 MEQ/L (98-107); CREATININE FOR GFR 1.02 MG/DL (0.70-1.30); FERRITIN 116 NG/ML (26-388); GLOMERULAR FILTRATION RATE > 60.0 (>49); GLUCOSE, FASTING 94 MG/DL (70-100); IRON (FE) 90 UG/DL (65-175); MAGNESIUM LEVEL 2.3 MG/DL (1.8-2.4); PERCENT SATURATION 29.7 % (19.7-50.0); POTASSIUM SERUM 4.4 MEQ/L (3.5-5.1); SODIUM LEVEL 142 MEQ/L (136-145); TOTAL IRON BINDING CAPACITY 303 UG/DL (250-450); TOTAL PROTEIN 6.7 GM/DL (6.4-8.2)
[2018-09-27 10:27] LABS: HEPATITIS B SURFACE ANTIBODY NEGATIVE (POSITIVE); TOTAL 25(OH) VITAMIN D 25.7 NG/ML (30.0-100.0)
[2018-09-27 10:28] LABS: VITAMIN B12 LEVEL 692 PG/ML (247-911)
[2018-09-27 10:30] LABS: INR 0.97
[2018-09-27 10:31] LABS: PARTIAL THROMBOPLASTIN TIME 28.1 SECONDS (25.4-37.6)
[2018-09-27 10:39] LABS: HEPATITIS B SURFACE ANTIGEN NEGATIVE (NEGATIVE)
[2018-09-27 11:04] LABS: HEPATITIS C VIRUS ABY INDEX 0.1 INDEX (<0.8)
[2018-09-27 11:06] LABS: HEPATITIS A ANTIBODY IGM NEGATIVE (NEGATIVE)
[2018-09-28 11:25] LABS: ALBUMIN 4.27 GM/DL (3.29-5.55); ALBUMIN % 63.8 % (55.8-66.1); ALPHA-1-GLOBULIN % 4.2 % (2.9-4.9); ALPHA-1-GLOBULINS 0.28 GM/DL (0.17-0.41); ALPHA-2-GLOBULINS 0.66 GM/DL (0.42-0.99); ALPHA-2-GLOBULINS % 9.9 % (7.1-11.8); BETA-1-GLOBULINS 0.38 GM/DL (0.28-0.60); BETA-2-GLOBULINS 0.36 GM/DL (0.19-0.55); BETA-2-GLOBULINS % 5.3 % (3.2-6.5); GAMMA GLOBULIN % 11.1 % (11.1-18.8); GAMMA GLOBULINS 0.74 GM/DL (0.65-1.58)
[2018-09-29 00:06] LABS: ALPHA 1 ANTITRYPSIN 126 mg/dL (90-200); ANTI-MITOCHONDRIAL ANTIBODY <20.0 Units (0.0-20.0); ANTI-SMOOTH MUSCLE ANTIBODY 10 Units (0-19); ANTINUCLEAR ANTIBODIES DIRECT Negative (Negative); CERULOPLASMIN 26.5 mg/dL (16.0-31.0); HEPATITIS A IgG TOTAL Negative (Negative); LIVER-KIDNEY MICROSOMAL ABY <20.1 Units (0.0-20.0); TISSUE TRANSGLUTAMINASE IgG 8 U/mL (0-5)
== END ==
LOC: M RAD 08:25
PROVIDERS: ATTEND Nurse Practitioner
DX: K22.70 Barrett's esophagus without dysplasia (principal); K21.9 Gastro-esophageal reflux disease without esophagitis; K44.9 Diaphragmatic hernia without obstruction or gangrene; K76.0 Fatty (change of) liver, not elsewhere classified; K59.00 Constipation, unspecified; E55.9 Vitamin D deficiency, unspecified

== ENCOUNTER → 2020-09-23 | Outpatient (REF) | payer MEDICARE, OTHER | LOC: M LAB REF 12:37 | PROVIDERS: ATTEND Internal Medicine | DX: K76.0 Fatty (change of) liver, not elsewhere classified (principal) ==

== ENCOUNTER 2020-09-25 08:52 | Outpatient (CLI) | payer MEDICARE ==
--- NOTE | 2020-09-25 09:29 | REP ---
INDICATION: K76.0 FATTY LIVER COMPARISON: 09/27/2018 TECHNIQUE: Real time harris scale ultrasound examination using curved array transducer. FINDINGS: Liver is hyperechoic consistent with fatty infiltration. No focal hepatic lesions are identified. Pancreas is incompletely evaluated due to interposed bowel gas but visualized portions are relatively normal. The gallbladder is normal and without gallstones, wall thickening, or pericholecystic fluid. No biliary ductal dilatation is appreciated and the common bile duct measures 5.0 mm diameter. Right kidney is normal in reniform shape without hydronephrosis and measures 10.6 x 5.6 x 6.1 cm. No ascites in the visualized right upper quadrant. IMPRESSION: 1. Hepatosteatosis. <Electronically signed by Husam Alberts > 09/25/20 [id number]
[2021-03-10] MEDS ORDERED: ADVITAB PO (07:45)
== END 2021-03-10 18:53 ==
LOC: M RAD 08:52
PROVIDERS: ATTEND Nurse Practitioner Family
DX: K76.0 Fatty (change of) liver, not elsewhere classified (principal); K44.9 Diaphragmatic hernia without obstruction or gangrene; K22.10 Ulcer of esophagus without bleeding; E55.9 Vitamin D deficiency, unspecified

== ENCOUNTER 2021-03-10 07:39 | Emergency (ER) | payer MEDICARE ==
[~2021-03-10] VITALS: Ht 180.3 cm; Wt 104.6 kg
[~2021-03-10 07:39] MED LIST changes: -ADVITAB PO; -ALBUTEROL 90 MCG/ACT 8GM HFA INHALER INH PRN; -ALBUTEROL SULFATE 2.5 MG/0.5 ML INH NEB SOLN INH PRN; -BAMLANIVIMAB 700 MG, ETESEVIMAB 1,400 MG in NS 250 ML IV ONE; -CASIRIVIMAB (REGN10933) 600 MG, IMDEVIMAB (REGN10987) 600 MG in NS 250 ML IV ONE; -EPINEPHrine INJ 1 MG/ML 1ML AMP IM PRN; -NS 1,000 ML IV SCH; -diphenhydrAMINE 50MG/ML VIAL (J1200) IV PRN; -methylPREDNISolone 125MG 2ML VIAL IV PRN
[2021-03-10] MEDS ORDERED: ADVITAB PO (07:45)
--- OUTSIDE RECORDS SUMMARY | 2021-03-10 07:46 | CCD ---
Author Author [facility] Organization [facility] Address Unknown Phone Unavailable Care Team Providers Care Quality System Manager Name Role Phone Loulou, Sakina DROP FORGER Unavailable Unavailable Loulou, Sakina DROP FORGER Unavailable Unavailable Loulou, Sakina DROP FORGER Unavailable Unavailable Loulou, Sakina DROP FORGER Unavailable Unavailable Loulou, Sakina DROP FORGER Unavailable Unavailable Loulou, Sakina DROP FORGER Unavailable Unavailable Loulou, Sakina DROP FORGER Unavailable Unavailable Loulou, Sakina DROP FORGER Unavailable Unavailable Loulou, Sakina DROP FORGER Unavailable Unavailable Loulou, Sakina DROP FORGER Unavailable Unavailable Loulou, Sakina DROP FORGER Unavailable Unavailable Loulou, Sakina DROP FORGER Unavailable Unavailable Loulou, Sakina DROP FORGER Unavailable Unavailable Loulou, Sakina DROP FORGER Unavailable Unavailable Loulou, Sakina DROP FORGER Unavailable Unavailable Loulou, Sakina DROP FORGER Unavailable Unavailable Loulou, Sakina DROP FORGER Unavailable Unavailable Loulou, Sakina DROP FORGER Unavailable Unavailable Loulou, Sakina DROP FORGER Unavailable Unavailable Loulou, Sakina DROP FORGER Unavailable Unavailable Loulou, Sakina DROP FORGER Unavailable Unavailable Loulou, Sakina DROP FORGER Unavailable Unavailable Loulou, Sakina DROP FORGER Unavailable Unavailable Loulou, Sakina DROP FORGER Unavailable Unavailable Loulou, Sakina DROP FORGER Unavailable Unavailable Loulou, Sakina DROP FORGER Unavailable Unavailable Loulou, Sakina DROP FORGER Unavailable Unavailable Loulou, Sakina DROP FORGER Unavailable Unavailable Loulou, Sakina DROP FORGER Unavailable Unavailable Loulou, Sakina DROP FORGER Unavailable Unavailable Loulou, Sakina DROP FORGER Unavailable Unavailable Loulou, Sakina DROP FORGER Unavailable Unavailable Loulou, Sakina DROP FORGER Unavailable Unavailable Loulou, Sakina DROP FORGER Unavailable Unavailable Loulou, Sakina DROP FORGER Unavailable Unavailable LAMBERTO (NASRA), Chichi SEN MD Unavailable Unavailab le LAMBERTO (NASRA), Chichi SEN MD Unavailable Unavailab le LAMBERTO (NASRA), Chichi SEN MD Unavailable Unavailab le LAMBERTO (NASRA), Chichi SEN MD Unavailable Unavailab le LAMBERTO (NASRA), Chichi SEN MD Unavailable Unavailab le LAMBERTO (NASRA), Chichi SEN MD Unavailable Unavailab le LAMBERTO (NASRA), Chichi SEN MD Unavailable Unavailab le LAMBERTO (NASRA), Chichi SEN MD Unavailable Unavailab le LAMBERTO (NASRA), Chichi SEN MD Unavailable Unavailab le LAMBERTO (NASRA), Chichi SEN MD Unavailable Unavailab le LAMBERTO (NASRA), Chichi SEN MD Unavailable Unavailab le LAMBERTO (NASRA), Chichi SEN MD Unavailable Unavailab le LAMBERTO (NASRA), Chichi SEN MD Unavailable Unavailab le LAMBERTO (NASRA), Chichi SEN MD Unavailable Unavailab le LAMBERTO (NASRA), Chichi SEN MD Unavailable Unavailab le LAMBERTO (NASRA), Chichi SEN MD Unavailable Unavailab le LAMBERTO (NASRA), Chichi SEN MD Unavailable Unavailab le LAMBERTO (NASRA), Chichi SEN MD Unavailable Unavailab le LAMBERTO (NASRA), Chichi SEN MD Unavailable Unavailab le LAMBERTO (NASRA), Chichi SEN MD Unavailable Unavailab le LAMBERTO (NASRA), Chichi SEN MD Unavailable Unavailab le LAMBERTO (NASRA), Chichi SEN MD Unavailable Unavailab le LAMBERTO (NASRA), Chichi SEN MD Unavailable Unavailab le LAMBERTO (NASRA), Chichi SEN MD Unavailable Unavailab le LAMBERTO (NASRA), Chichi SEN MD Unavailable Unavailab le LAMBERTO (NASRA), Chichi SEN MD Unavailable Unavailab le LAMBERTO (NASRA), Chichi SEN MD Unavailable Unavailab le LAMBERTO (NASRA), Chichi SEN MD Unavailable Unavailab le LAMBERTO (NASRA), Chichi SEN MD Unavailable Unavailab le LAMBERTO (NASRA), Chichi SEN MD Unavailable Unavailab le LAMBERTO (NASRA), Chichi SEN MD Unavailable Unavailab le LAMBERTO (NASRA), Chichi SEN MD Unavailable Unavailab le LAMBERTO (NASRA), Chichi SEN MD Unavailable Unavailab le LAMBERTO (NASRA), Chichi SEN MD Unavailable Unavailab le LAMBERTO (NASRA), Chichi SEN MD Unavailable Unavailab le LAMBERTO (NASRA), Chichi SEN MD Unavailable Unavailab le LAMBERTO (NSARA), Chichi SEN MD Unavailable Unavailab le LAMBERTO (NASRA), Chichi SEN MD Unavailable Unavailab le LAMBERTO (NASRA), Chichi SEN MD Unavailable Unavailab le LAMBERTO (NASRA), Chichi SEN MD Unavailable Unavailab le LAMBERTO (NASRA), Chichi SEN MD Unavailable Unavailab le LAMBERTO (NASRA), Chichi SEN MD Unavailable Unavailab le LAMBERTO (NASRA), Chichi SEN MD Unavailable Unavailab le LAMBERTO (NASRA), Chichi SEN MD Unavailable Unavailab le LAMBERTO (NASRA), Chichi SEN MD Unavailable Unavailab le LAMBERTO (NASRA), Chichi SEN MD Unavailable Unavailab le LAMBERTO (NASRA), Chichi SEN MD Unavailable Unavailab le LAMBERTO (NASRA), Chichi SEN MD Unavailable Unavailab le LAMBERTO (NASRA), Chichi SEN MD Unavailable Unavailab le LAMBERTO (NASRA), Chichi SEN MD Unavailable Unavailab le LAMBERTO (NASRA), Chichi SEN MD Unavailable Unavailab le LAMBERTO (NASRA), Chichi SEN MD Unavailable Unavailab le LAMBERTO (NASRA), Chichi SEN MD Unavailable Unavailab le LAMBERTO (NASRA), Chichi SEN MD Unavailable Unavailab le LAMBERTO (NASRA), Chichi SEN MD Unavailable Unavailab le LAMBERTO (NASRA), Chichi SEN MD Unavailable Unavailab le LAMBERTO (NASRA), Chichi SEN MD Unavailable Unavailab le LAMBERTO (NASRA), Chichi SEN MD Unavailable Unavailab le LAMBERTO (NASRA), Chichi SEN MD Unavailable Unavailab le LAMBERTO (NASRA), Chichi SEN MD Unavailable Unavailab le LAMBERTO (NASRA), Chichi SEN MD Unavailable Unavailab le LAMBERTO (NASRA), Chichi SEN MD Unavailable Unavailab le LAMBERTO (NASRA), Chichi SEN MD Unavailable Unavailab le LAMBERTO (NASRA), Chichi SEN MD Unavailable Unavailab le LAMBERTO (NASRA), Chichi SEN MD Unavailable Unavailab le LAMBERTO (NASRA), Chichi SEN MD Unavailable Unavailab le LAMBERTO (NASRA), Chichi SEN MD Unavailable Unavailab le LAMBERTO (NASRA), Chichi SEN MD Unavailable Unavailab le LAMBERTO (NASRA), Chichi SEN MD Unavailable Unavailab le LAMBERTO (NASRA), Chichi SEN MD Unavailable Unavailab le LAMBERTO (NASRA), Chichi SEN MD Unavailable Unavailab le LAMBERTO (NASRA), Chichi SEN MD Unavailable Unavailab le LAMBERTO (NASRA), Chichi SEN MD Unavailable Unavailab le LAMBERTO (NASRA), Chichi SEN MD Unavailable Unavailab le LAMBERTO (NASRA), Chichi SEN MD Unavailable Unavailab le LAMBERTO (NASRA), Chichi SEN MD Unavailable Unavailab le LAMBERTO (NASRA), Chichi SEN MD Unavailable Unavailab le LAMBERTO (NASRA), Chichi SEN MD Unavailable Unavailab le LAMBERTO (NASRA), Chichi SEN MD Unavailable Unavailab le LAMBERTO (NASRA), Chichi SEN MD Unavailable Unavailab le LAMBERTO (NASRA), Chichi SEN MD Unavailable Unavailab le LAMBERTO (NASRA), Chichi SEN MD Unavailable Unavailab le LAMBERTO (NASRA), Chichi SEN MD Unavailable Unavailab le LAMBERTO (NASRA), Chichi SEN MD Unavailable Unavailab le LAMBERTO (NASRA), Chichi SEN MD Unavailable Unavailab le LAMBERTO (NASRA), Chichi SEN MD Unavailable Unavailab le LAMBERTO (NASRA), Chichi SEN MD Unavailable Unavailab le Rydberg, Carol PA Unavailable Unavailable Rydberg, Carol PA Unavailable Unavailable Rydberg, Carol PA Unavailable Unavailable Rydberg, Carol PA Unavailable Unavailable Rydberg, Carol PA Unavailable Unavailable Rydberg, Carol PA Unavailable Unavailable Rydberg, Carol PA Unavailable Unavailable Rydberg, Carol PA Unavailable Unavailable Rydberg, Carol PA Unavailable Unavailable Rydberg, Carol PA Unavailable Unavailable Rydberg, Carol PA Unavailable Unavailable Rydberg, Carol PA Unavailable Unavailable Rydberg, Carol PA Unavailable Unavailable Rydberg, Carol PA Unavailable Unavailable Rydberg, Carol PA Unavailable Unavailable Rydberg, Carol PA Unavailable Unavailable Rydberg, Carol PA Unavailable Unavailable Rydberg, Carol PA Unavailable Unavailable Rydberg, Carol PA Unavailable Unavailable Rydberg, Carol PA Unavailable Unavailable Rydberg, Carol PA Unavailable Unavailable Rydberg, Carol PA Unavailable Unavailable Rydberg, Carol PA Unavailable Unavailable Ashley Franks DROP FORGER Unavailable Unavailable Ashley Franks DROP FORGER Unavailable Unavailable Golden, Ashley DROP FORGER Unavailable Unavailable Golden, Ashley DROP FORGER Unavailable Unavailable Golden, Ashley DROP FORGER Unavailable Unavailable Golden, Ashley DROP FORGER Unavailable Unavailable Golden, Ashley DROP FORGER Unavailable Unavailable Golden, Ashley DROP FORGER Unavailable Unavailable Golden, Ashley DROP FORGER Unavailable Unavailable Golden, Ashley DROP FORGER Unavailable Unavailable Golden, Ashley DROP FORGER Unavailable Unavailable Golden, Ashley DROP FORGER Unavailable Unavailable Golden, Ashley DROP FORGER Unavailable Unavailable Golden, Ashley DROP FORGER Unavailable Unavailable Golden, Ashley DROP FORGER Unavailable Unavailable Golden, Ashley DROP FORGER Unavailable Unavailable Golden, Ashley DROP FORGER Unavailable Unavailable Golden, Ashley DROP FORGER Unavailable Unavailable Golden, Ashley DROP FORGER Unavailable Unavailable Golden, Ashley DROP FORGER Unavailable Unavailable Golden, Ashley DROP FORGER Unavailable Unavailable Golden, Ashley DROP FORGER Unavailable Unavailable Golden, Ashley DROP FORGER Unavailable Unavailable Golden, Ashley DROP FORGER Unavailable Unavailable Golden, Ashley DROP FORGER Unavailable Unavailable Golden, Ashley DROP FORGER Unavailable Unavailable Golden, Ashley DROP FORGER Unavailable Unavailable Golden, Ashley DROP FORGER Unavailable Unavailable Golden, Ashley DROP FORGER Unavailable Unavailable Golden, Ashley DROP FORGER Unavailable Unavailable Golden, Ashley DROP FORGER Unavailable Unavailable Golden, Ashley DROP FORGER Unavailable Unavailable Golden, Ashley DROP FORGER Unavailable Unavailable Golden, Ashley DROP FORGER Unavailable Unavailable Golden, Ashley DROP FORGER Unavailable Unavailable Golden, Ashley DROP FORGER Unavailable Unavailable Golden, Ashley DROP FORGER Unavailable Unavailable Golden, Ashley DROP FORGER Unavailable Unavailable Golden, Ashley DROP FORGER Unavailable Unavailable Golden, Ashley DROP FORGER Unavailable Unavailable Golden, Ashley DROP FORGER Unavailable Unavailable Golden, Ashley DROP FORGER Unavailable Unavailable Golden, Ashley DROP FORGER Unavailable Unavailable Golden, Ashley DROP FORGER Unavailable Unavailable Golden, Ashley DROP FORGER Unavailable Unavailable Golden, Ashley DROP FORGER Unavailable Unavailable Golden, Ashley DROP FORGER Unavailable Unavailable Golden, Ashley DROP FORGER Unavailable Unavailable Golden, Ashley DROP FORGER Unavailable Unavailable Golden, Ashley DROP FORGER Unavailable Unavailable Golden, Ashley DROP FORGER Unavailable Unavailable Re-disclosure Warning The records that you are about to access may contain information from federally-assisted alcohol or drug abuse programs. If such information is present, then the following federally mandated warning applies: This information has been disclosed to you from records protected by federal confidentiality rules (42 CFR part 2). The federal rules prohibit you from making any further disclosure of this information unless further disclosure is expressly permitted by the written consent of the person to whom it pertains or as otherwise permitted by 42 CFR part 2. A general authorization for the release of medical or other information is NOT sufficient for this purpose. The Federal rules restrict any use of the information to criminally investigate or prosecute any alcohol or drug abuse patient.The records that you are about to access may contain highly sensitive health information, the redisclosure of which is protected by Article 27-F of the [facility] Public Health law. If you continue you may have access to information: Regarding HIV / AIDS; Provided by facilities licensed or operated by the [facility] Office of Mental Health; or Provided by the [facility] Office for People With Developmental Disabilities. If such information is present, then the following [facility] mandated warning applies: This information has been disclosed to you from confidential records which are protected by state law. State law prohibits you from making any further disclosure of this information without the specific written consent of the person to whom it pertains, or as otherwise permitted by law. Any unauthorized further disclosure in violation of state law may result in a fine or shelter sentence or both. A general authorization for the release of medical or other information is NOT sufficient authorization for further disc losure. Family History Family Member Name Family Member Gender Family Member Status Date o f Status Description Data Source(s) Unknown Male Problem [facility] ([facility]) Unknown Unknown Problem [facility] ([facility]) Unknown Unknown Problem [facility] ([facility] Unknown Unknown Problem [facility] ([facility] Unknown Unknown Problem [facility] ([facility] Unknown Unknown Problem [facility] ([facility] Encounters Encounter Providers Location Date Indications Data Source(s ) Outpatient Attender: Carol KIRKLAND 03/02/2021 04:45:00 PM [facility] Attender: MCKINLEY ORANTES MD ([place]) 04/28/202 1 08:21:04 PM EDT [facility] Attender: MCKINLEY ORANTES MD ([place]) 1 08:21:04 PM EDT [facility] Attender: MCKINLEY ORANTES MD ([place]) 1 08:21:04 PM EDT [facility] Attender: MCKINLEY ORANTES MD ([place]) 1 08:21:04 PM EDT [facility] Attender: MCKINLEY ORANTES MD ([place]) 1 08:21:04 PM EDT [facility] Attender: MCKINLEY ORANTES MD ([place]) 08:21:04 PM EDT [facility] Attender: MCKINLEY ABDUL) MDReferrer: Jose Franks [facility] 08/27/2020 08:21:04 PM EDT [facility] Attender: MCKINLEY ORANTES ([place]) MDReferrer: Jose Franks [facility] 08/27/2020 08:21:04 PM EDT [facility] Outpatient Attender: Sakina Jamil [facility] Matt Santiago 07:40:00 AM EST [facility] ([facility] ) Attender: MCKINLEY ORANTES ([place]) MDReferrer: Jose Franks [facility] 02/27/2020 08:20:10 PM EDT [facility] Attender: MCKINLEY ABDUL) MDReferrer: Jose Franks [facility] 02/27/2020 08:20:10 PM EDT [facility] Attender: MCKINLEY ORANTES ([place]) MDReferrer: Jose Franks [facility] 02/27/2020 08:20:10 PM EDT [facility] Attender: MCKINLEY ABUDL) MDReferrer: Jose Franks [facility] 02/27/2020 08:20:10 PM EDT [facility] Medications Medication Brand Name Start Date Product Form Dose Route Admi nistrative Instructions Pharmacy Instructions Status Indications Reaction Description Data Source(s) 40 mg 09/22/2020 12:00:00 AM EDT capsule,delayed release (DR/EC) 90 TAKE ONE CAPSULE BY MOUTH EVERY MORNING TAKE ONE CAPSULE BY MOUTH EVERY MORNING SOLD: 09/28/2020 [facility] 20 mg 09/08/2020 12:00:00 AM EDT capsule,delayed release (DR/EC) 180 TAKE ONE CAPSULE BY MOUTH TWICE A DAY TAKE ONE CAPSULE BY MOUTH TWICE A DAY SOLD: 09/10/2020 [facility] Cholecalciferol 1000 UNT Oral Tablet Vitamin D 06/26/2020 12:00:00 A M EST ORAL active [facility] ([facility]) Insurance Providers Payer name Policy type / Coverage type Policy ID Covered democrat ID 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 Plan Information [employer] [id number] Ruma [id number] [employer] [id number] 0 [id number] [employer] [id number] 0 [id number] [employer] Workers Compensation [id number] Self [employer](W/C-Tj Co& Watn Workers Compensation [id number] Self [employer] [id number] U[employer] Care Management 1972 0 [id number] MEDICARE COMPLETE [id number] SP [id number] MEDICARE COMPLETE [id number] SP [id number] Umr (New [employer]) Commercial [id number] Self [id number] UMR [facility] [id number] SP [id number] Umr Care Management [id number] 0 [id number] Umr Care Management [id number] [facility] Medicare Complete [id number] 0 [id number] [employer] RISK MANAGEMENT P [id number] S [id number] [facility] MEDICARE [id number] S [id number] MEDICARE COMPLETE [id number] SP [id number] [employer]/Umr (Old) [facility] Part B [id number] Self [id number] [employer]/Umr (Old) [employer] Part B [id number] Self [id number] [employer] [id number] SP [id number] Umr Care Management [id number] 0 [id number] Umr [employer] Ppo Commercial [id number] Self [id number] [employer] Ppo Commercial [id number] Self [id number] [employer] PPO O [id number] S [id number] [employer] Commercial [id number] OTHER WORKERS COMPENSATI S [id number] S [id number] SELF PAY P UNAVAILABLE [id number] S UNAVAILA BLE [employer] W/C [id number] SP [id number] OTHER WORKERS COMPENSATION [id number] SP [id number] Problems, Conditions, and Diagnoses No Information Surgeries/Procedures No Information Results ID Date Data Source [id number] 09/23/2020 07:51:00 AM EDT [facility] ([facility]) Name Value Range Interpretation Code Description Data Lyndsey rce(s) Supporting Document(s) Fibrosis Score 0.24 0.00-0.21 [facility] ([facility]) Fibrosis Stage Laboratory test result [facility] ([facility]) Steatosis Score 0.74 0.00-0.30 [facility] ([facility]) Steatosis Grade Laboratory test result [facility] ([facility]) S3 - Marked or Severe Steatosis Kerr Grade Laboratory test result [facility] ([facility]) N1 - Borderline or probable KERR Kerr Score 0.50 [facility]) Height 72 in [facility]) Weight 233 LBS [facility]) Alpha 2-Macroglobulins,QN 141 mg/dL 110-276 [facility] NT ([facility]) Haptoglobin 113 mg/dL 32-363 [facility] ([facility]) Apolipoprotein A-1 149 mg/dL 101-178 [facility] ([facility]) Bilirubin, Total 0.4 mg/dL 0.0-1.2 [facility] ([facility]) GGT 90 IU/L 0-65 [facility]) Alt (SGPT) P5P 26 IU/L 0-55 [facility] ([facility]) Ast (Sgot) P5P 19 IU/L 0-40 [facility] ([facility]) Cholesterol Total 223 mg/dL 100-199 [facility] ([facility]) Glucose, Serum 91 mg/dL 65-99 [facility] ([facility]) Triglycerides 176 mg/dL 0-149 [facility] ([facility]) Interpretations Laboratory test result M [facility] ([facility]) <content>.</content>
<content>Quanti tative results of 10 biochemicals in combination with</content>
<content>age, gender, height, and weight, are analyzed using a</content>
<content>computational algorithm to provide a quantitative surrogate</content>
<content>marker (0.0-1.0) of liver fibrosis (Metavir F0-F4), hepatic</content>
<content>steatosis (0.0-1.0, S0-S3), and Non-Alcoholic Steato-</content>
<content>Hepatitis (KERR) (0.0-0.75, N0-N2). The absence of steatosis</content>
<content>(S<0.38) precludes the diagnosis of KERR.</content>
<content>.</content>
<content>Fibrosis marker: In a study of 171 Non-Alcoholic Fatty</content>
<content>Liver Disease (NAFLD) patients where 23% had significant</content>
<content>NAFLD fibrosis (Metavir F2-F4) and 11% had cirrhosis by</content>
<content>liver biopsy, a fibrosis result of >0.3 yielded a</content>
<content>sensitivity of 83% and a specificity of 78% for the</content>
<content>detection of significant fibrosis(1).</content>
<content>.</content>
<content>Steatosis Marker: In a population of 744 patients (583 HCV,</content>
<content>18 HBV, 69 NAFLD, and 74 alcoholic disease patients), where</content>
<content>36% had significant steatosis (>5%) on a liver biopsy, a</content>
<content>steatosis score >0.5 had a sensitivity of 71% and a</content>
<content>specificity of 72% for identification of significant</content>
<content>steatosis(2).</content>
<content>.</mele nt>
<content>KERR marker: In a population of 257 NAFLD patients, where</content>
<content>62% had at least some KERR by liver biopsy, a prediction of</content>
<content>KERR had a sensitivity of 88% for identifying KERR and a</content>
<content>specificity of 50%(3).</content>
<content>.</content>
<content></content> Fibrosis Scoring Laboratory test result [facility] ([facility]) <content>.</content>
<content><0.21 = Stage F0 - No fibrosis</content>
<content>0.21 - 0.27 = Stage F0 - F1</content>
<content>0.27 - 0.31 = Stage F1 - Portal fibrosis</content>
<content>0.31 - 0.48 = Stage F1 - F2</content>
<content>0.48 - 0.58 = Stage F2 - Bridging fibrosis with few septa</content>
<content>0.58 - 0.72 = Stage F3 - Bridging fibrosis with many septa</content>
<content>0.72 - 0.74 = Stage F3 - F4</content>
<content>>0.74 = Stage F4 - Cirrhosis</content>
<content></content> Steatosis Grading Laboratory test result [facility] ([facility]) <content>.</content>
<content>< 0.30 = S0 - No Steatosis</content>
<content>0.30 to 0.38 = S0 - S1</content>
<content>0.38 to 0.48 = S1 - Minimal Steatosis</content>
<content>0.48 to 0.57 = S1 - S2</content>
<content>0.57 to 0.67 = S2 - Moderate Steatosis</content>
<content>0.67 to 0.69 = S2 - S3</content>
<content>> 0.69 = S3 - Marked or Severe Steatosis</content>
<content></content> Kerr Scoring Laboratory test result [facility] NT ([facility]) . 0.25 = N0 - Not KERR 0.50 = N1 - Borderline or probable KERR 0.75 = N2 - KERR Limitations Laboratory test result [facility] T ([facility]) . KERR FibroSure is recommended for patients with suspected non-alcoholic fatty liver disease. It is not recommended for patients with other liver diseases. It is also not recommended in patients with Gilbert Disease, acute hemolysis, acute viral hepatitis, drug induced hepatitis, genetic liver disease, autoimmune hepatitis and/or extra- hepatic cholestasis. Any of these clinical situations may lead to inaccurate quantitative predictions of fibrosis. Comment Laboratory test result [facility] ([facility]) . This test was developed and its performance characteristics determined by [facility]. It has not been cleared or approved by the Food and Drug Administration. The FDA has determined that such clearance or approval is not necessary. . For questions regarding this report please contact customer service at . . References: . 1. Heidi William. et al. Diagnostic Value of Biochemical Markers (FibroTest) for the prediction of Liver Fibrosis in patients with Non-Alcoholic Fatty Liver Disease. BMC Gastroenterology 2006; 6:6. 2. Dennis Crow et al. The Diagnostic Seble ue of Biomarkers (Steato Test) for the Prediction of Live r Steatosis. Comparative Hepatol. 2005; 4:10. 3. Nena Crow, Hillary Gordon, et a l. Diagnostic value of biochemical markers (KERR TEST) for the prediction of non alcohol steato hepatitis in patients with non- alcoholic fatty liver disease. BMC Gastroenterology 2006; 6:34 doi:10.1186/7938-440H-7-34. Performed at: [facility] [id number] 61 Stave Machine Tender: Leeann Ferguson MD, Phone: [phone] ID Date Data Source [id number] 09/23/2020 07:49:00 AM EDT [facility] ([facility]) Name Value Range Interpretation Code Description Data Lyndsey rce(s) Supporting Document(s) Cholesterol [Mass/volume] in Serum or Plasma 234 mg/dL 131-200 [facility] ([facility]) Triglyceride [Mass/volume] in Serum or Plasma 154 mg/dL 30-150 [facility] ([facility]) Cholesterol in HDL [Mass/volume] in Serum or Plasma 50 mg/dL 35-60 [facility] ([facility]) Cholesterol in LDL [Mass/volume] in Serum or Plasma by calcu lation 153 CALC 50-159 [facility] ([facility]) ID Date Data Source [id number] 09/23/2020 07:49:00 AM EDT [facility] ([facility]) Name Value Range Interpretation Code Description Data Lyndsey rce(s) Supporting Document(s) Glucose [Mass/volume] in Serum or Plasma 97 mg/dL 74-99 [facility] ([facility]) 100-125 mg/dL PRE-DIABETES/FASTING >126 mg/dL DIABETES/FASTING Creatinine 1.2 mg/dL 0.6-1.3 [facility] ([facility]) Urea nitrogen [Mass/volume] in Serum or Plasma 16 mg/dL 7-18 [facility] ([facility]) Sodium [Moles/volume] in Serum or Plasma 139 meq/L 136-145 [facility] ([facility]) Potassium [Moles/volume] in Serum or Plasma 4.2 meq/L 3.5-5.1 [facility] ([facility]) Chloride [Moles/volume] in Serum or Plasma 104 meq/L 98-107 [facility] ([facility]) Carbon dioxide, total [Moles/volume] in Serum or Plasma 24 meq/L 21 -32 [facility] ([facility]) Calcium [Mass/volume] in Serum or Plasma 9.4 mg/dL 8.5-10.1 [facility] ([facility]) Alkaline phosphatase isoenzyme [Units/volume] in Serum or Pl asma 84 mg/dL 46-116 [facility] ([facility]) Total Bilirubin 0.7 mg/dL 0.2-1.0 [facility] ([facility]) Alanine aminotransferase [Enzymatic activity/volume] in Seru m or Plasma 37 U/L 12-78 [facility] ([facility]) Aspartate aminotransferase [Enzymatic activity/volume] in Serum or Plasma 18 U/L 15-37 [facility] ([facility] ) Albumin [Mass/volume] in Serum or Plasma 4.1 g/dL 3.4-5.0 [facility] ([facility]) Proteinase 3 Ab [Units/volume] in Serum 6.7 g/dL 6.4-8.2 [facility] ([facility]) Glomerular filtration rate/1.73 sq M pre dicted among non-blacks [Volume Rate/Area] in Serum or Plasma by Creatinine-based formula (MDRD) Laboratory test result [facility] A/G Ratio 1.58 CALC 1.00-1.90 [facility] Glomerular filtration rate/1.73 sq M pre dicted among blacks [Volume Rate/Area] in Serum or Plasma by Creatinine-based formula (MDRD) Laboratory test result [facility] ([facility]) <content>CHRONIC KIDNEY DISEASE STAGING PER NKF</content>
<content></content>
<content>STAGE I & II GFR >= 60 NORMAL TO MILDLY DECREASED</content>
<content>STAGE III GFR 30-59 MODERATELY DECREASED</content>
<content>STAGE IV GFR 15-29 SEVERELY DECREASED</content>
<content>STAGE V GFR <15 VERY LITTLE GFR LEFT</content>
<content>ESRD GFR <15 ON OUTPATIENT THERAPIST</content>
<content></content> ID Date Data Source [id number] 08/27/2020 11:00:00 AM EDT [facility] Name Value Range Interpretation Code Description Data Lyndsey rce(s) Supporting Document(s) Follow Up [facility] UGFTTo4fWzRVSdVcFVFoFvtEJMhmPDxxSVTaO5V2VHywIq2ZCPjbgpDoGQFoBq0+MBErLJ7ecd6wJTRw gMy [file] uBzan30QB9HcRWeVIDp+9RkF86Fr0MSC/NYNNWlWrAjzG2Ni0WaqnFQfZ5Q//h8a9nRnYbpjQvrk+ROTARY CUTTER FEEDER [file] mva still operator+6yoXxP4aChk0qOq3KjNo6oNm/GkMuof+7tbCwyvcGzVTOvUA6WdBy7p82xuos2DdqFZnJj9BEobl [file] NEnrmX1IRz0Mc3VcMtGKZy+SCRUM PROJECT MANAGER/Y+K2FH2g1lcE89n2yY606YgLkI+xeqqRp62eE+emIPsXoLEXyIKNNJ [file] V4Fy1cnODOAg+w7D42MtB9URPn5VrVIAgG9XZzM+pMAjF+OKV0QVgfaT35h8N1Gtih+Social Worker Psychiatric/PU4P9PIz7 [file] shell maker lockstitch/GEPUTCf0UPAeItnSiyzotPbb5fSAJbGmnc6ECF5+4XbN/YGEWZg7KNwV3MC/F9aSmmBv0IsQolE7 [file] 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/ByB04kw7cjuqrXVjDnNpB4QORQDEGumua8yQT8eZJsxmpLgXqRbEbjnXqYQhBtA3jLRei1H59EdsG [file] 5q/ehB0N0S+y+BOYD/jqca36Rt7SDbAU2Fh9hag6nY2 GG3TB+mqEL8NZXcJ87uLRynlPDqflywm7z5aiTx+dNOUnGM61iazM/xybMvh/paSEUITJ1FpBn50VBdF v280oAhyh3qZH41u5qM74wefrSIrmlGEgc+7ySuFoBSn2axwzLbp5CKFN9u8ukkFId4+PI5Ju6ufc3t+ MoRv1F61+oiTFmyqVtpR8l3NEMJEZ++rfoYDd5sLld tf5hItO74UcMpU3sJl1SDAZH/jDISDjqMDhaOye55AZuYuSsJ/hWC4rGDF4U75jP3E7wZKHo/Ue2oDUf YpYRFmLDr4DBfM8iYqxmwu95n56wyzG4yLxH8CYwbgMc8qURQ72i+huEYGqFAV99HrFGdgYUxcfoKIp2 cC9f7P7freMMamW/zGWAm226tX0ft7NpkVZURqU+dairy nutrition specialist izOZIorJ0AGBd22DQx7WffOrP6WYnECu3siRJanLj889vp4HT8n4bYTOXP3VKprOHhzkLTaHFBkj0GSF UChdwHoqdyJWCKrywberBQekcXSk96J+8m+rdIDIgigmQpd4tlG/1jSmNXf2Rezt8uPvs1BqlP6lrROL pE7Zb43+13grQ668lTMmuIyOCxKJYr07RZFv+Tlcvm muNJVx68wei8HAPQhYAcZVJtxRS8I4AodIM1bLRaOIjQ3BsqCINQqGSbFdtnNpThbcv750mvej9DzFp2 XvrDhcqfzg4huNvClJy7SE1n5TcjZ1bkYcjVhGAoI/8ovPKjqfPZsM1nYTjzmogZyDAhPncorchkzsUS 4oBU5xXf+9eu05CXnq/3JwfRoWaxg73jNw2IcLUhN1 Oo5/Llq8LIfUgkOW73re/NiuAcTrjvidR50pnU1bUm4KjPT2GRpsQ3wUotgxFwkR/Jeanne/QRIYFgKm25 350GQNgDFJ79tTYzeyg5qitr1zoj06r+KG6gYevS450IzX6ggnbb1yJrbavz4xR2Ryc2+yxAW30Pm/ZI JizIsEMh5C/ckVoHZr17byX0KzGtUs1IRC8/6xJVkn yUWn3dAudpoaBbKKrmIQT7odipHe8B/Rvp7aoiZwcnP8f0mLX744SlTxHch9+2aNgbCN7z/vESRRwwWB usBXbi16Z674lYfrIHYAdBX0Rro53/Yaa5f/bkLlw+/rvZ5p69upM0CjEfJdYxf6On38OCCmhSVoufhi Vpm7/XZVPljl3Jvq5vtj1mru/TTppCOP0o/NpnCTBi xh32/5d7nS4qcFff8csQ0wbw1Nc2kl7zh7onoEYckug0vDjkMFZm5SpDmiLpMm3gdmSqZDH4nen4xJf+ kL4MykA4/AD5bxV/98vDiHw3HlYubrmQOJVq7znVmb7RgM5ap3t/462bhKpoZBwJ4nfk7v6ldKueusOn U0iLd9V5jYoG6ivx7v+W3HvNKnFOY3Sc+BhSapc27s Y5wISTb9GzLDcwN2IG7dwCSu71fleioatg3+JPlu+8TJM5yq0FkG9GGvgPxPAnd1MFLWjBi8zx8hwqPN btdGpjAJcf80CIAfpuh2tVI03xEqT4bZlYGFo3lERvQgyyH6RjEIb2Fxn/NZDqqYD12QYTE1d7B04N6T 16UonETSPmrCtTxpgsNJp7pB5yF5ZSaydEJ6pMm4jM +sdK4VILrL15FADyyiXGjeRpamL1wFccE3kN8jS1nOwMInSu92hRJGsbIPwzMxJSDDpxAwbxB3CPirr5 9qSF79NSenTbJR2/nV6YhxfQd6XcRyv3AKVnDhIByrQXfutnZZWNlMIjrEJ3TyQSWUgadBgIsVzhnTw+ Sabine/oZw8o3qM6fKT+QOyckklpJ2ArXxrCepkEYmESU [file] ZP52vUw5Zbb3UMkwxQuSQuHyaV00MSx2rEM+VVVTVHtApm1Nye8/KIKO+CKz5Ap7Jg4l20Md7LAl7WRF9u TJToGwqrSq+3uQE1mK/dFy8sjNwX09s0THSXZL1Eoa CpHSKvuZwwOCXGRWP2+sI2uj9ox1PSWpJPD+/zvL+FYx52EltiUJ1nTuoORxDK/third steel pourer+zdj+we4sCsJzk bG37mF7uWx4vIb8mLSkUpCwg4xPwVULzuItJf+y5dL3LW28XM0gm4yJK+wzpbInSfXN2GT5NUi4cRGzr WPcKXDqvCmR6i9p/Qm3sk/9xAVw23f7EmXZIV3tJS/ 2Z1ODhkSCxAo5JJD8+vfo0xdAIxGWvppznz+Yf87g0Icbz07ggCr8nHlrfATOqq16kPDg9j7e7hfLpQK yE2njUhQtIjTD3ics+ykIR5wfrUobLbiAzcTQvX9k4u+sjZMympwZAjY4ehky9FGR151sLBFWtiDUq3F vDydebX12GKN/MJK0HSQYkCb5Q+xpTz0b2+yvrI1ET O5NFtiUXnkTexOQUC36p1Z/qpuB8bGqxpHDapQn1922vBdHVgUEfcL9A505n8iqM3IIQ8D+fDUkPYX6C NLJCqqvvBuG3CG0eF88TFshQAa/sXE4IHzSIwwbxildTM6uUoqXnmamsbRAj2GW/dE+aFRl1vG4g6cMC yQKTLFNpAW+aIl/ZKXanJy0Sfqca2WkcLZlTi4+pv4 vky+jiN+3JSK0pzwblL2ssSfLwl+iiVNBYGrJ4FT12Ssa5+V537Kks6Ml3eo/Mike/HrSF8yCTQ+GiAFmN h9gxfLh2Tnx+siUHhh5b6AntuL4Zxd9TAQkeBlyuai7ATozCHEnR8dZMrqJmB3Dky+1F/ALUvul0b1Rf n1Ealnp8A0hUFkB4G3GZGfTCd+bzpzd0lPeKOBL08u wAKDIFeoWQhdyE7NfQ8PKWIH6Dcfa+kR4CWY0w+TM1LkOVktZn+o+Ob0PnhomUlggCbwGQrfz6LvsU4V ZLqKz2+0avCQc+HQRbUEzPx/OntvryhuQ1il9T4ndklnjo0nDI7oJb9hcbgE0yuUOfC882ST4IaR35A3 obiI10/nr99Vx0lL6H1OgSknQyJat928n8K20buIVU bGoF9IH/nursing home/kDJ+swj/Nz9JoPzwJFAcsqomJBIuw61A/3lo3kKFdwqC2uag3jhZ0ciCKv/LrzoJRvB8 pXpDj348CStOZsUQpfNVNY8OlNsCAqY/3c+VbOXYuMIg7FLwdNtbH+ILuIbWnp0G8lTbd3M5RJkLV7Xg qTlkijJtGwz/6cfPYaBFNL54+mJUqAw2QJC/+YtbpH Sabine+Vi+STj2QrhrLbHeerBveUUTPcwN/5wp5laa68oE2fwEEreMCjvyvJwiAnLot/6l1qsYJvA5HMwqo [file] 9CqJRV8tBG86Q9njygMWULEhh4nt2IBsQmkX5fDvChBpvlc+c46ODacQwgOkX9g9uj4lwsPszWsB/Vocational Rehabilitation Supervisor [file] 5e1PxTcTy9QSIxfNL1XVLMM6wjsCgovLDGLWB2Q+NEGATIVE CHECKER [file] p7kTOgQA14wXDt7/wLg0Y6Uv4aNbvFM2cpvt5CbRjUvaRpBEwvaWTRUnRr6MYcBBQdwmkcfbArHEQ/SCRUM PROJECT MANAGER [file] lDPHikrWlMemZktPktbOn6aU9apVOzp+NEGATIVE CHECKER/cqU/yTH [file] vp data+UHTJSYzUTDhE1lbv+24cZrkRFcJwKPd0otgoTuz tR9DWsVX7a/vWYCbM+KLGPBMozLeET0yDF3/B65YvjJtoIG+6ze+dsa3PWKZrnlUCcXQf7yZ6Pvb5BMU 9mb1R8+dfBoJ3pCtvniFPBcA1jitdoezlDJ34nAOYoEfVbcI/+wjH5W+Qgqc/O/UIZx/wMTGaxh3Qk35 BVYWsUKBrkTE605HORU6D+gbUm3Jh1ja7TO78zvttI dja18ouksc0wz1WWS48l3su7LJO9oObuQ7ulyOviEipaIvWVMiR5MqoQeusUyKa0ulYLJUpVJXQqB/PQ mhsd94wt+2zxbng9GLAnrfRuzXmbyV8yrC1faprqS/eOd79mc/PmDkQ/fwOgR9O3oFA3PQi1m5/Er9jN AkH2E+tmP2VYaHF+zrmyU7AWc0nu/BjvqBvNlgU9VZ Paola+qKutPirxA12FSY7DgMdhAvXnntyCxys5rciOZ+Cq4pLqRBSEWi8qpfLIDhC1YYlR6yRDwwliJyd/ [file] //ClBeXfgWinBG4K3gBL2yr+ClG/epRWP1Ryzh [file] Tarik/Q7+Tve/bUshV6IkX0NClMyxGIUBeog+TYgN5nt7y4BRU8dW6U6cVXA0JtlnWuAfIaZeljZeD2PA2K pY5lyJLBEXIDYCmumRTrWxviXZpi6G1Jr0j3V6lu8q y3/THlTqwq/LWNRrxvCV7WmWt0h6OWq9LFe/yMSL9madeCizLB4Yict1XFpVjotEvBfi2+7S70dGjljk n7kOSDd4i1mtkyNeWLJO1sb2GmSrC9QE5xtVMIDlzL3XNhPIX6aqWWozDtlFHMBJo3icRp8e27tYDgu/ NEGATIVE CHECKER+rmBBe+DuqAv5QatTU+/FPky4CIzRzlXL3IZL5a5 [file] PWZ4ZLC5Af8JDJGBZ2Z= ID Date Data Source [id number] 06/23/2020 07:46:00 AM EST [facility] ([facility]) Name Value Range Interpretation Code Description Data Lyndsey rce(s) Supporting Document(s) Calcidiol [Mass/volume] in Serum or Plasma 22.7 24.0-80.0 [facility] ([facility]) This test was performed using FastPack I P Vitamin D immunoassay kit. Values obtained with different assay methods should not be used interchangeably. ID Date Data Source [id number] 06/23/2020 07:45:00 AM EST [facility] ([facility]) Name Value Range Interpretation Code Description Data Lyndsey rce(s) Supporting Document(s) Prostate specific Ag [Mass/volume] in Serum or Plasma 0.45 ng/mL [facility] ([facility]) This assay was performed on the Siemens Dimension EXL using the B- Galactosidase/CPRG methodology and should not be compared interchangeably with other methods. The PSA should not be used alone as a screening test for the presence or absence of malignant disease. ID Date Data Source [id number] 06/23/2020 07:45:00 AM EST [facility] ([facility]) Name Value Range Interpretation Code Description Data Lyndsey rce(s) Supporting Document(s) Triglyceride [Mass/volume] in Serum or Plasma 90 mg/dL 30-150 [facility] ([facility]) Cholesterol [Mass/volume] in Serum or Plasma 242 mg/dL 131-200 [facility] ([facility]) Cholesterol in HDL [Mass/volume] in Serum or Plasma 57 mg/dL 35-60 [facility] ([facility]) Cholesterol in LDL [Mass/volume] in Serum or Plasma by calcu lation 167 CALC 50-159 [facility] ([facility]) ID Date Data Source [id number] 06/23/2020 07:45:00 AM EST [facility] ([facility]) Name Value Range Interpretation Code Description Data Lyndsey rce(s) Supporting Document(s) Glucose [Mass/volume] in Serum or Plasma 98 mg/dL 74-99 [facility] ([facility]) 100-125 mg/dL PRE-DIABETES/FASTING >126 mg/dL DIABETES/FASTING Urea nitrogen [Mass/volume] in Serum or Plasma 17 mg/dL 7-18 [facility] ([facility]) Creatinine 1.2 mg/dL 0.6-1.3 [facility]) Sodium [Moles/volume] in Serum or Plasma 142 meq/L 136-145 [facility] ([facility]) Chloride [Moles/volume] in Serum or Plasma 106 meq/L 98-107 [facility] ([facility]) Potassium [Moles/volume] in Serum or Plasma 4.4 meq/L 3.5-5.1 [facility] ([facility]) Carbon dioxide, total [Moles/volume] in Serum or Plasma 27 meq/L 21 -32 [facility] ([facility]) Calcium [Mass/volume] in Serum or Plasma 9.2 mg/dL 8.5-10.1 [facility] ([facility]) Alkaline phosphatase isoenzyme [Units/volume] in Serum or Pl asma 88 mg/dL 46-116 [facility]) Total Bilirubin 0.5 mg/dL 0.2-1.0 [facility] ([facility]) Aspartate aminotransferase [Enzymatic activity/volume] in Serum or Plasma 21 U/L 15-37 [facility] ([facility] ) Albumin [Mass/volume] in Serum or Plasma 3.9 g/dL 3.4-5.0 [facility] ([facility]) Alanine aminotransferase [Enzymatic activity/volume] in Seru m or Plasma 40 U/L 12-78 [facility] ([facility]) Proteinase 3 Ab [Units/volume] in Serum 6.8 g/dL 6.4-8.2 [facility] ([facility]) A/G Ratio 1.34 CALC 1.00-1.90 [facility]) Glomerular filtration rate/1.73 sq M pre dicted among blacks [Volume Rate/Area] in Serum or Plasma by Creatinine-based formula (MDRD) Laboratory test result [facility] ([facility]) <content>CHRONIC KIDNEY DISEASE STAGING PER NKF</content>
<content></content>
<content>STAGE I & II GFR >= 60 NORMAL TO MILDLY DECREASED</content>
<content>STAGE III GFR 30-59 MODERATELY DECREASED</content>
<content>STAGE IV GFR 15-29 SEVERELY DECREASED</content>
<content>STAGE V GFR <15 VERY LITTLE GFR LEFT</content>
<content>ESRD GFR <15 ON OUTPATIENT THERAPIST</content>
<content></content> Glomerular filtration rate/1.73 sq M pre dicted among non-blacks [Volume Rate/Area] in Serum or Plasma by Creatinine-based formula (MDRD) Laboratory test result [facility] ([facility] ) ID Date Data Source [id number] 02/27/2020 11:15:00 AM EDT [facility] Name Value Range Interpretation Code Description Data Lyndsey rce(s) Supporting Document(s) Follow Up [facility] JUQVXk5qGoTKLjOwXGTnFniFWZnmXEwdIKBpA1V6IUgmGy0DDFdjqtCwWPEgJj5+XIDwUJ1hxh1qLENe gMy [file] bsd2xQARo7yLiFa0qoEWUDLifu//Fuel Manager+y/+i/5DNAimewvLHFHcWW9NI9giAkDE+i/EPa8pZyjI32HcIM [file] zaheer+hjy6SSVPbj4D+Pebbles/teqcw+HUh279zlo7hNizQr r55G/QNYp0C6CpnDKiZtebH/c89yorka/+oYuqpSW/HEJjt7zftWXDA7gT7jyz9z/Vu450QeRCYCxfOM CeYtbRXfMsyhlpeGCI+3fizqXu2ELa9K2KR+0EyjjMc2l3W+kg19cfEnVzFcmIu4mmB978v0zmSRl8Lw lXtMIg8Q+SkTv/EJnyCC03rAV0lEu7+wWijtuefiXi IlVilDHfLiDspFkM5gyOUjAOIazSfk+P/cpgXATt50V4svMVNYl/HJmOqNb0p8SkBvzcmpIvH4SR5sPQ 8EmTRK7IuXzk5ocGsw7Qfz/aqkDPj60QhmAQj930K4O3zf9rcaDB+DuGi7Ykxv3WxUmnlobvKOEJhvX2 CV0m1h6kxMovUgOX+NEGATIVE CHECKER+O1+Sstjkj3LlXt8TKhwhtm j/cdM9kQnhewg2doIdNfHmvpBs8iTysYC97X5FTPWhYV3Vyy5l8HpVFXK84cV0re93h8FMTcj3aBwXJt IlqVucOPksy21XN6kNRdfPyMz73C/yr0OmVyNw0Zo3ckBFnCG4FN+piz0951DDNJm3LGzRRvyNa6Ie1t TSBh4tuSyVaos0TEfbJlm3PqAEJooxvEfLBo3EGG/u 0I3oUxJ+X1rg90oJ8w3JoLdn6qVdIAm/EhMv6KEbGx64cae3HmKpfmLIPGbIUHe7B9kunfTL4Q2HRiVq MYf+BFvOhQKiHNI++WOxfrb8rTPkwmAsp9G6Jm7/lhG7P5sP+Av6Ag5AH3XKdG2Gy11T3T9Nd0Vy3xr8 1Q8FRqmX3ome0SA2rGdrwrs3N3OgrlKbe676P/B80e 2RqNtVT3HhmEaV0CsZ5wEIVj3c6HvaDP/uFThf06g85nDyK/1v0xHX/fZ1MifPZs7jrtYecjlWEi8DsI yltpvKLHKjF6PfniE3vgI4XBGDPQai/g+dCoH6Z7J+eXUwnOqMWS8OTsVTz44c6fJV9qIXsyUYP6XusO nDfBGdB3bn+RWOKHjj87LTbSXFwjd0ySgc0Z0kq7/1 WQe6eRr+yBwiyKt40Di54OXVS/n+WPrxB2wm+Wvv9PVXPGkTQLmScPXbLPrWLL6QjzAgtKE9PGcDxMqD FB3Yt3VrUMxcvMawcdJEiauW7kkC3paZZ+s1q1fFmpqcdSQmDHal3h3gn/1eQ/14qeDG6wWU/OYxD5Zz y2swduQVUadpejw4a9nsLpyfR2Axb0H4ddEAJeewf8 he8eUg8qfbTDOWrSID7vyGX5ZpKw8fyD+lqARCF1NA8NpEqa0C8jjnVSloq8l27fHz4gnS1m7O9sDWBE Xhs05FsM/qohRVvmzqTTEG/[place]/bEOj1QHJVhcVeTdjHOlhRkF5fAsdpHLs01ic8PGlaJm7QDoXbisEo [file] hUT0sKzKl+ZMap6AUjF7fn82i/library science instructor/vHz5cejPWH4NIFNyDFbPs0VhC7g9Dm78F64wwhZEvkIsenp34C SU6e+tr4BfwUJ2bbY1nFxbr5GH/3dQ/rcu94k2ATMhf6w1ktiEh32jGKNFrV5BoARr8KRLzYhAJEG1DI 3QnpIF2x8O70mxkBsO0SJF/Ugmdlz9QIf2gBT0JFP+ S4ugCl1zcOd0iX7j7XJYlEKBYTUc9rcFL5ertSOmgRoy4Mt3jJdZ72l6kq45PhGWQJXxkR2ZNT0RY18y 1Qa+zGOjzrK0ASCd9AIHxYc/pB/466ssgbYn61r1L+rVDuL374ypIHj1v9+aeaK95HgWieHGZfpKPWzs 89WE3aMtIkf5e1ORDYh/cAwKhfySqa+/Hu8Tojz8WW zjDbZ+yb99bCNpkod97xyf9+0bA6ZoK2A3WKXY/X0fxwgu+/1EHru8B/O2P7Qan1V1XiRN3E3m5K+N10 MJgQe8D7T83TL3ScniCK2k/nIx0bLQrb/0LejOtxcrQb1iQafC/Us6wLzqIqyuHTTo8zLJ0l7V2r6PWo EAyzqJxaRmg4ZH7dY9Jj3lG6iV/fhzTkfqj0ozZG0M Cj7DVfSG5R7D3TBWb266upHP4ajhk4eZ0CBUjQ9uuMJ0k2GlP9uiVrWr4jtZDlgYYP+[place]+BnRqvhGWg [file] h3RzwVdlHV7j4UHMebDcTLT3E1BX+4VC89Jqye7eelBzPhymqTy8P2PtsMonopWdubMZsGiP+/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+GEs [file] GtVlX/NEGATIVE CHECKER/qBnniRwDbRHlPOIWyP8Dsaq/3LRsKFwiRmwjVWUGbJ0equbYfytQ0fEr50OtkAgS9V2igHM [file] eABd5I7bN+vVNdSEcyZQ+mHd+YTZLgG5xr8vaePKNhcBlTCh7EnPGPhI7zCi+8IMwhV9QCAtyN+Rz/dairy nutrition specialist [file] eX5XNaye+wA/environmental marketer+5yEfF7QKO3d8kHC+raytlKf1N6j7tNPPALo/N0N/0j9CKtwMfBkSbNydraR4ZxNV [file] NEGATIVE CHECKER+hNA989fqw0wREpA8mThiYnhoIRRSWDcIeY5tdg7iRsRfwE1ydQJCvx5kBhAjkMid0wx39689AyZBP /9MmHf+DifR8g77LcPs0F+0Tl28eRG+wspBUVi2Frv nwYo89Ybi1sua9H5WuxcsbPq6AW2Q0AI7+/6/rrfG/B82uBqvOT68qaYP9fNJ4Hza1+Xq3wdCBZNkrty PVPdGTi7e3IWZbP0AMG2oUnMmXwrrWjZYOj3El5RW8JtPIDtEqKdUCC7YjkMDTOr+x+P+ZEU+Bb8ZPJS HSc0dC3xGqzC7eRGEVUXgMwMRwyKqdIMWdPc7y57YD hUpXJ3cEj9zBMAWUY59PGvZxyr/mHWaMP+IvpU81/mac64I1+v+Yl44Oi6aYQYmJg2stwNywRkzmpNbv 2a2w2zdiKywY+TWRe0zLiR8py/JXOlqPv/yVRuWByXh81AImJW1Jl7e4ajxdhFz7xn4H5TSmLUtDJFXl Qqgj6UaP/2sD/Bf/ebSRXWTdA/ZJvt7oCC61DF5cN1 +LCuqTzib5WWusTjUsJ8SnMS6NuD/umKfEwbRWP+7qmh6sRm8wprNNyPkU0OP5+559aQNiHS3/jGqX4Y 8p3/LgByzFCMUdid8zdKQDdaQ2R9cmDjYx4osBkAVaelGNb29Tkm5y8zIsyA5bfGuLOZPTvWq7tBKDkx +msoXH92eeTcUknaKbpjRkfXAnU3L7D3gzxevBspST 6JfDj2r3IU02BhTX+TE7Bdem8fUZ9K25A296z0ezqMCjFxU1lb54UE7oI5BEpWZyKuGUINqQibaWwU7O H30xZnsAKMmLCEPp/exq98PPZs9CWpAxbeyYxg8xSXc4HFCdtbe6oOPr8LlfTUiYunt0qQOpcoB3YJJ9 Zdeepy1CS+6UnoUBGlIjd8EDXxpvtsX7WhakzybhHB [file] l6JDduUrPVQP0/+av5WaRKG8mI8p8w0WBGpuFP3659Qy+0NDYHHronwVSjjwBSjdgUn+0vV1CrQD+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 [file] nul7LDB1VklgDNGdqSiEBgcU7EkBWEIWMC+Fuel Manager/5pCud+KO8YqEO1bzhJzQydVf9pSBxu3dLrIfNYqzlr [file] nkQbWiWaPjzKJqf/KrlWQNsv6GmzfEDJax+ZQEsxDzfXJd8QxpsddTigpJpV7+JbRup6RvKcU8nIf/Basketballs [employer] Footballs Reverser [file] RL/AmY6c8HYig0mjM384Ie1EtxSU0nHflde7PDU+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 HPhO9tXTul9/Z/18ibf5k8WpM4+5njRl+khUckPmTuQTZ6n6oLrZrv9lLwW8eK2j7LUBmkBBrkNbynTz GY6XHD9jZ+j3svENbCRDroVil7vHIMbVkWfjCfpNiB+rCMFhcDiu+5Uuo2oK+Langford+YgwcoM8EPiUXMaTN [file] E4SIphRClsUmXqajvzp71NPfUA8D7Dlzxfgk3gzgyr 34HQlPOcstwakaqviNZlvsBdyJgW8HIVJj3agVK+QKtqtxLpdNlJ49/3MapQRLBDkiO6hoEd+qF1eC7h 94xoD1YTMTtkAB8bwiesVG9zoKp+u1Qevt4CHWnhyr5RF89k6uQEQbus5+f+tDMVQlFZissbQV4GWRwo AWAMk44c31PPfMqvwpRLB1DPpmGQNF/BXsJ6trF2i/ FGQG2qQMmKDrKgneVt+G3hpWT32qm+GIJZ5SIp/xweHOkewuBqB8bgfa4it1Gjubj2NcD5zecD507/0q y1+qikM6zrYGPU3srrRJg1piLC5gc1FPz1R/1h4jh3WvcqP1wYhSdouA1WRdfDghKMO3h/Hah6SAI/vo jZzlfZUSocyW2DguQO7qY13HYI0eG11wcyei7LVqwz xOrZQx0Tg0hbYHAo1Jd6w6B9K/Tq/R4Kn40EVNu4HPKpZzVbDS+85DB2dN/qp+Rlx1gHuIlMYlReKujV /NOzQWBP2LhFci85hxmiDbzhqUrmeNauYptPEKY4m67nc+HByBiFE6trkBfpl5+uTlKOc1g97c8IKf NG+N4uN2yhDBSXqtX37mqOc9GNtcgaeb07QZS/Z/Basketballs [employer] Footballs Reverser [file] HsmvsJraw8CUczuDFQscw7VS2njGaDB5ZGYda0mfWp72z6SFbQkdQLy8/zquQXtast5PBkSeRIi0+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 [file] BpSHW7jh1yikfI6+oh0oCf0XYbEJ431Wp580xS8YKRpxr6F3yk41nTXP0HQEPOwMRfEymo9nq/Kyrgyz/[facility] [file] speech pathology supervisor+/3B/Ptz/pgT1pXf0uTEpNeEhAzgP7PJ5A7E5Z1gvCfMTtAqTugEle7YlQKIkL+ldfL8Nqeg0dHkSq [file] FM/5uYA0BI4KjabncuGzlkIYpiJ3L09o8P4OED0vd6ft1YkulewybHXVoWAPLDlPbI1CJ0cYYqjJ+hand mounter [file] dBvB/8+aDMZDzb4dXzo2XGQS95ISj/hhoHB6FHT+ZD67JJpBc8mZidDUqPNHRKFjDpGVa5V2u+6j+fruit loader machine operator [file] 2JyJ4Dj3ln4s4ajF/cC9dq78BZa8crsbSvpaME8vaJu4DgjCF8aIjRzkrDaNpRCc8vP5Cpc5ldpQ/religious education teacher [file] MK5OOaWPFpToj6Ecm+g+cx/ckMF6/Hoisting Engine Operator+D5ZeQFHob [file] MTrpFgN3PnuzEPshIGGVSf== Procedure Social History No Information Vital Signs ID Date Data Source UNK Name Value Range Interpretation Code Description Data Source(s) Heart rate 68 /min 68 /min [facility] ([facility]) Body height 71.50 [in_i] 71.50 [in_i] [facility] ([facility]) 5'11.50" Body weight 236.00 [lb_av] 236.00 [lb_av] [facility] T ([facility]) Body mass index (BMI) [Ratio] 32.5 kg/m2 32.5 k g/m2 [facility] ([facility]) Systolic blood pressure 122 mm[Hg] 122 mm[Hg] M [facility] ([facility]) RT Arm Diastolic blood pressure 76 mm[Hg] 76 mm[Hg] [facility] ([facility]) RT Arm
--- OUTSIDE RECORDS SUMMARY | 2021-03-10 09:09 | CCD ---
Author Author [facility] Organization [facility] Address Unknown Phone Unavailable Care Team Providers Care Stoker Mechanic Name Role Phone Loulou, Sakina ADMINISTRATIVE PROFESSIONAL Unavailable Unavailable Loulou, Sakina ADMINISTRATIVE PROFESSIONAL Unavailable Unavailable Loulou, Sakina ADMINISTRATIVE PROFESSIONAL Unavailable Unavailable Loulou, Sakina ADMINISTRATIVE PROFESSIONAL Unavailable Unavailable Loulou, Sakina ADMINISTRATIVE PROFESSIONAL Unavailable Unavailable Loulou, Sakina ADMINISTRATIVE PROFESSIONAL Unavailable Unavailable Loulou, Sakina ADMINISTRATIVE PROFESSIONAL Unavailable Unavailable Loulou, Sakina ADMINISTRATIVE PROFESSIONAL Unavailable Unavailable Loulou, Sakina ADMINISTRATIVE PROFESSIONAL Unavailable Unavailable Loulou, Sakina ADMINISTRATIVE PROFESSIONAL Unavailable Unavailable Loulou, Sakina ADMINISTRATIVE PROFESSIONAL Unavailable Unavailable Loulou, Sakina ADMINISTRATIVE PROFESSIONAL Unavailable Unavailable Loulou, Sakina ADMINISTRATIVE PROFESSIONAL Unavailable Unavailable Loulou, Sakina ADMINISTRATIVE PROFESSIONAL Unavailable Unavailable Loulou, Sakina ADMINISTRATIVE PROFESSIONAL Unavailable Unavailable Loulou, Sakina ADMINISTRATIVE PROFESSIONAL Unavailable Unavailable Loulou, Sakina ADMINISTRATIVE PROFESSIONAL Unavailable Unavailable Loulou, Sakina ADMINISTRATIVE PROFESSIONAL Unavailable Unavailable Loulou, Sakina ADMINISTRATIVE PROFESSIONAL Unavailable Unavailable Loulou, Sakina ADMINISTRATIVE PROFESSIONAL Unavailable Unavailable Loulou, Sakina ADMINISTRATIVE PROFESSIONAL Unavailable Unavailable Loulou, Sakina ADMINISTRATIVE PROFESSIONAL Unavailable Unavailable Loulou, Sakina ADMINISTRATIVE PROFESSIONAL Unavailable Unavailable Loulou, Sakina ADMINISTRATIVE PROFESSIONAL Unavailable Unavailable Loulou, Sakina ADMINISTRATIVE PROFESSIONAL Unavailable Unavailable Loulou, Sakina ADMINISTRATIVE PROFESSIONAL Unavailable Unavailable Loulou, Sakina ADMINISTRATIVE PROFESSIONAL Unavailable Unavailable Loulou, Sakina ADMINISTRATIVE PROFESSIONAL Unavailable Unavailable Loulou, Sakina ADMINISTRATIVE PROFESSIONAL Unavailable Unavailable Loulou, Sakina ADMINISTRATIVE PROFESSIONAL Unavailable Unavailable Loulou, Sakina ADMINISTRATIVE PROFESSIONAL Unavailable Unavailable Loulou, Sakina ADMINISTRATIVE PROFESSIONAL Unavailable Unavailable Loulou, Sakina ADMINISTRATIVE PROFESSIONAL Unavailable Unavailable Loulou, Sakina ADMINISTRATIVE PROFESSIONAL Unavailable Unavailable Loulou, Sakina ADMINISTRATIVE PROFESSIONAL Unavailable Unavailable LAMBERTO (NASRA), Chichi SEN MD Unavailable Unavailab le LAMBERTO (NASRA), Chichi SEN MD Unavailable Unavailab le LAMBERTO (NASRA), Chichi ESN MD Unavailable Unavailab le LAMBERTO (NASRA), Chichi [...] MD Unavailable Unavailab le LAMBERTO (NASRA), Chichi SNE MD Unavailable Unavailab le LAMBERTO (NASRA), Chichi [...] SEN MD Unavailable Unavailab le LAMBERTO (NASRA), Cihchi SEN MD Unavailable Unavailab le LAMBERTO (NASRA), [...] Rydberg, Carol PA Unavailable Unavailable Ashley Franks ADMINISTRATIVE PROFESSIONAL Unavailable Unavailable Ashley Franks ADMINISTRATIVE PROFESSIONAL Unavailable Unavailable Golden, Ashley ADMINISTRATIVE PROFESSIONAL Unavailable Unavailable Golden, Ashley ADMINISTRATIVE PROFESSIONAL Unavailable Unavailable Golden, Ashley ADMINISTRATIVE PROFESSIONAL Unavailable Unavailable Golden, Ashley ADMINISTRATIVE PROFESSIONAL Unavailable Unavailable Golden, Ashley ADMINISTRATIVE PROFESSIONAL Unavailable Unavailable Golden, Ashley ADMINISTRATIVE PROFESSIONAL Unavailable Unavailable Golden, Ashley ADMINISTRATIVE PROFESSIONAL Unavailable Unavailable Golden, Ashley ADMINISTRATIVE PROFESSIONAL Unavailable Unavailable Golden, Ashley ADMINISTRATIVE PROFESSIONAL Unavailable Unavailable Golden, Ashley ADMINISTRATIVE PROFESSIONAL Unavailable Unavailable Golden, Ashley ADMINISTRATIVE PROFESSIONAL Unavailable Unavailable Golden, Ashley ADMINISTRATIVE PROFESSIONAL Unavailable Unavailable Golden, Ashley ADMINISTRATIVE PROFESSIONAL Unavailable Unavailable Golden, Ashley ADMINISTRATIVE PROFESSIONAL Unavailable Unavailable Golden, Ashley ADMINISTRATIVE PROFESSIONAL Unavailable Unavailable Golden, Ashley ADMINISTRATIVE PROFESSIONAL Unavailable Unavailable Golden, Ashley ADMINISTRATIVE PROFESSIONAL Unavailable Unavailable Golden, Ashley ADMINISTRATIVE PROFESSIONAL Unavailable Unavailable Golden, Ashley ADMINISTRATIVE PROFESSIONAL Unavailable Unavailable Golden, Ashley ADMINISTRATIVE PROFESSIONAL Unavailable Unavailable Golden, Ashley ADMINISTRATIVE PROFESSIONAL Unavailable Unavailable Golden, Ashley ADMINISTRATIVE PROFESSIONAL Unavailable Unavailable Golden, Ashley ADMINISTRATIVE PROFESSIONAL Unavailable Unavailable Golden, Ashley ADMINISTRATIVE PROFESSIONAL Unavailable Unavailable Golden, Ashley ADMINISTRATIVE PROFESSIONAL Unavailable Unavailable Golden, Ashley ADMINISTRATIVE PROFESSIONAL Unavailable Unavailable Golden, Ashley ADMINISTRATIVE PROFESSIONAL Unavailable Unavailable Gloden, Ashley ADMINISTRATIVE PROFESSIONAL Unavailable Unavailable Golden, Ashley ADMINISTRATIVE PROFESSIONAL Unavailable Unavailable Golden, Ashley ADMINISTRATIVE PROFESSIONAL Unavailable Unavailable Golden, Ashley ADMINISTRATIVE PROFESSIONAL Unavailable Unavailable Golden, Ashley ADMINISTRATIVE PROFESSIONAL Unavailable Unavailable Golden, Ashley ADMINISTRATIVE PROFESSIONAL Unavailable Unavailable Golden, Ashley ADMINISTRATIVE PROFESSIONAL Unavailable Unavailable Golden, Ashley ADMINISTRATIVE PROFESSIONAL Unavailable Unavailable Golden, Ashley ADMINISTRATIVE PROFESSIONAL Unavailable Unavailable Golden, Ashley ADMINISTRATIVE PROFESSIONAL Unavailable Unavailable Golden, Ashley ADMINISTRATIVE PROFESSIONAL Unavailable Unavailable Golden, Ashley ADMINISTRATIVE PROFESSIONAL Unavailable Unavailable Golden, Ashley ADMINISTRATIVE PROFESSIONAL Unavailable Unavailable Golden, Ashley ADMINISTRATIVE PROFESSIONAL Unavailable Unavailable Golden, Ashlye ADMINISTRATIVE PROFESSIONAL Unavailable Unavailable Golden, Ashley ADMINISTRATIVE PROFESSIONAL Unavailable Unavailable Golden, Ashley ADMINISTRATIVE PROFESSIONAL Unavailable Unavailable Golden, Ashley ADMINISTRATIVE PROFESSIONAL Unavailable Unavailable Golden, Ashley ADMINISTRATIVE PROFESSIONAL Unavailable Unavailable Golden, Ashley ADMINISTRATIVE PROFESSIONAL Unavailable Unavailable Golden, Ashley ADMINISTRATIVE PROFESSIONAL Unavailable Unavailable Golden, Ashley ADMINISTRATIVE PROFESSIONAL Unavailable Unavailable Re-disclosure Warning The records that [...] is protected by Article 27-F of the [facility] Public Health law. If you continue you may have access to information: Regarding HIV / AIDS; Provided by facilities licensed or operated by the [facility] Office of Mental Health; or Provided by the [facility] Office for People With Developmental Disabilities. If such information is present, then the following [facility] mandated warning applies: This information has [...] law may result in a fine or long term sentence or both. A general authorization for [...] Outpatient Attender: Carol KIRKLAND 03/02/2021 04:45:00 PM [facility] Attender: MCKINLEY ORANTES MD ([place]) 04/28/202 1 [...] [facility] Attender: MCKINLEY ABDUL) MDReferrer: Jose Franks [facility] 08/27/2020 08:21:04 PM EDT [facility] Attender: MCKINLEY ORANTES ([place]) MDReferrer: Jose Franks [facility] 08/27/2020 08:21:04 PM EDT [facility] Attender: Sakina Jamil [facility] Matt Santiago 07:40:00 AM EST [facility] ([facility] ) Attender: MCKINLEY ORANTES ([place]) MDReferrer: Jose Franks [facility] 02/27/2020 08:20:10 PM EDT [facility] Attender: MCKINLEY ABDUL) MDReferrer: Jose Franks [facility] 02/27/2020 08:20:10 PM EDT [facility] Attender: MCKINLEY ORANTES ([place]) MDReferrer: Jose Franks [facility] 02/27/2020 08:20:10 PM EDT [facility] Attender: MCKINLEY ABDUL) MDReferrer: Jose Franks [facility] 02/27/2020 08:20:10 PM EDT [facility] [...] type / Coverage type Policy ID Covered green party ID Covered green party's relationship to painter 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 Medicare Complete [id number] 0 [id number] [employer] RISK MANAGEMENT P [id number] S [id number] [facility] MEDICARE [id number] S [id number] MEDICARE COMPLETE [id number] SP [id number] [employer]/Umr (Old) [facility] Part B [id number] Self [id number] [employer]/Umr (Old) Medigap Part B [id number] Self [id number] [employer] [id number] SP [id number] [employer] Care Management [id number] 0 [id number] Umr [employer] Ppo Commercial [id number] Self [id number] [employer] Ppo Commercial [id number] Self [id number] [employer] PPO O [id number] S [id number] [employer] Commercial [id number] OTHER WORKERS COMPENSATI S [id number] S [id number] SELF PAY P UNAVAILABLE [id number] S UNAVAILA BLE [employer]OM[employer] W/C [id number] SP [id number] OTHER WORKERS COMPENSATION [id number] SP [id number] Problems, Conditions, and Diagnoses No Information Surgeries/Procedures No Information Results ID Date Data Source [id number] 09/23/2020 07:51:00 AM EDT [facility] ([facility]) Name Value Range Interpretation Code Description Data Lyndsey rce(s) Supporting Document(s) Fibrosis Score 0.24 0.00-0.21 [facility] ([facility]) Fibrosis Stage Laboratory test result [facility] ([facility]) Steatosis Score 0.74 0.00-0.30 [facility] ([facility]) Steatosis Grade Laboratory test result [facility] ([facility]) S3 - Marked or Severe Steatosis Kerr Grade Laboratory test result [facility] ([facility]) N1 - Borderline or probable KERR Kerr Score 0.50 [facility]) Height 72 in [facility]) Weight 233 LBS [facility]) Alpha 2-Macroglobulins,QN 141 mg/dL 110-276 [facility] NT ([facility]) Haptoglobin 113 mg/dL 32-363 [facility] ([facility]) Apolipoprotein A-1 149 mg/dL 101-178 [facility] ([facility]) Bilirubin, Total 0.4 mg/dL 0.0-1.2 [facility] ([facility]) GGT 90 IU/L 0-65 [facility] ([facility]) Alt (SGPT) P5P 26 IU/L 0-55 [facility] ([facility]) Ast (Sgot) P5P 19 IU/L 0-40 [facility] ([facility]) Cholesterol Total 223 mg/dL 100-199 [facility] ([facility]) Glucose, Serum 91 mg/dL 65-99 [facility] ([facility]) Triglycerides 176 mg/dL 0-149 [facility] ([facility]) Interpretations Laboratory test result [facility] ([facility]) <content>.</content>
<content>Quanti tative results of 10 [...]
<content></content> Steatosis Grading Laboratory test result [facility] ([facility]) <content>.</content>
<content>< 0.30 = S0 - No Steatosis</content>
<content>0.30 to 0.38 = S0 - S1</content>
<content>0.38 to 0.48 = S1 - Minimal Steatosis</content>
<content>0.48 to 0.57 = S1 - S2</content>
<content>0.57 to 0.67 = S2 - Moderate Steatosis</content>
<content>0.67 to 0.69 = S2 - S3</content>
<content>> 0.69 = S3 - Marked or Severe Steatosis</content>
<content></content> Kerr Scoring Laboratory test result [facility] ([facility]) . 0.25 = N0 - Not KERR 0.50 = N1 - Borderline or probable KERR 0.75 = N2 - KERR Limitations Laboratory test result [facility] ([facility]) . KERR FibroSure is recommended for [...] of fibrosis. Comment Laboratory test result [facility] ([facility]) . This test was developed and its performance characteristics determined by [facility] [facility]. It has not been cleared or approved [...] fatty liver disease. BMC Gastroenterology 2006; 6:34 doi:10.1186/3833-026A-1-34. Performed at: [facility] [id number] Ladle Cleaner: Leeann Ferguson MD, Phone: [phone] ID Date Data Source [id number] 09/23/2020 07:49:00 AM EDT [facility] ([facility]) Name Value Range Interpretation Code Description Data Lyndsey rce(s) Supporting Document(s) Cholesterol [Mass/volume] in Serum or Plasma 234 mg/dL 131-200 [facility] ([facility]) Triglyceride [Mass/volume] in Serum or Plasma 154 mg/dL 30-150 [facility] ([facility]) Cholesterol in HDL [Mass/volume] in Serum or Plasma 50 mg/dL 35-60 [facility] ([facility]) Cholesterol in LDL [Mass/volume] in Serum or Plasma by calcu lation 153 CALC 50-159 [facility] ([facility]) ID Date Data Source [id number] 09/23/2020 07:49:00 AM EDT [facility] ([facility]) Name Value Range Interpretation Code Description Data Lyndsey rce(s) Supporting Document(s) Glucose [Mass/volume] in Serum or Plasma 97 mg/dL 74-99 [facility] ([facility]) 100-125 mg/dL PRE-DIABETES/FASTING >126 mg/dL DIABETES/FASTING Creatinine 1.2 mg/dL 0.6-1.3 [facility]) Urea nitrogen [Mass/volume] in Serum or Plasma 16 mg/dL 7-18 [facility] ([facility]) Sodium [Moles/volume] in Serum or Plasma 139 meq/L 136-145 [facility] ([facility]) Potassium [Moles/volume] in Serum or Plasma 4.2 meq/L 3.5-5.1 [facility] ([facility]) Chloride [Moles/volume] in Serum or Plasma 104 meq/L 98-107 [facility] ([facility]) Carbon dioxide, total [Moles/volume] in Serum or Plasma 24 meq/L 21 -32 [facility] ([facility]) Calcium [Mass/volume] in Serum or Plasma 9.4 mg/dL 8.5-10.1 [facility] ([facility]) Alkaline phosphatase isoenzyme [Units/volume] in Serum or Pl asma 84 mg/dL 46-116 [facility] ([facility]) Total Bilirubin 0.7 mg/dL 0.2-1.0 [facility] ([facility]) Alanine aminotransferase [Enzymatic activity/volume] in Seru m or Plasma 37 U/L 12-78 [facility] ([facility]) Aspartate aminotransferase [Enzymatic activity/volume] in Serum or Plasma 18 U/L 15-37 [facility] ([facility] ) Albumin [Mass/volume] in Serum or Plasma 4.1 g/dL 3.4-5.0 [facility] ([facility]) Proteinase 3 Ab [Units/volume] in Serum 6.7 g/dL 6.4-8.2 [facility] ([facility]) Glomerular filtration rate/1.73 sq M pre dicted among non-blacks [Volume Rate/Area] in Serum or Plasma by Creatinine-based formula (MDRD) Laboratory test result [facility] A/G Ratio 1.58 CALC 1.00-1.90 [facility] Glomerular filtration rate/1.73 sq M pre dicted among blacks [Volume Rate/Area] in Serum or Plasma by Creatinine-based formula (MDRD) Laboratory test result [facility] ([facility]) <content>CHRONIC KIDNEY DISEASE STAGING PER NKF</content>
<content></content>
<content>STAGE I & II GFR >= 60 NORMAL TO MILDLY DECREASED</content>
<content>STAGE III GFR 30-59 MODERATELY DECREASED</content>
<content>STAGE IV GFR 15-29 SEVERELY DECREASED</content>
<content>STAGE V GFR <15 VERY LITTLE GFR LEFT</content>
<content>ESRD GFR <15 ON TOOL PROCUREMENT COORDINATOR</content>
<content></content> ID Date Data Source [id number] 08/27/2020 11:00:00 AM EDT [facility] Name Value Range Interpretation Code Description Data Lyndsey rce(s) Supporting Document(s) Follow Up [facility] PVCYRh5jZnSHJwPpPJUuTmeIEUfyBSodZZWxA2S8CThpKk1UXLliyzQdJIFoCt4+CBKrYW6bss5iDRFk gMy [file] [place]/FBBTMVUAOQc5Ojxf8rlS6sTRfj2zt7+y62bpbXYplgDoe6f79QdL0zu0v2R1bFM/W1qBvdlCJgIm [file] fQwcd23UR9TbMXdQYDu+5DyE22Hb1CPO/URMBDfNjUmjP8Qd0SfgiQLxE3K//o3f7nYzZkntJyyh+TEACHING MANAGER [file] shell trim tool setter+6flIcR9yWpv6eZy3QqHt2xHc/GkMuof+1byUzyykSkOEEdCG5BeUr3v08wiup9UihMPeUj5FTqgj [file] MXnlaU4EJu1Md0FfIgEYDj+FRONT OFFICE SPECIALIST/Y+R0RK0r2aiO83w0sG354OzLnC+scrlRj67rI+emIPsXoLEXyIKNNJ [file] V4Xs6faRXQNf+g0C16EnG1NCSy1BdVTZvP5KVuA+pMAjF+EBF7VWlizC79q0E6Rkrt+Hand Lens Polisher/NY5S0DUg6 [file] composing machine operator/VCRJNNt1KAZwZqwUbpjydUcc6xLDRnSlqn3JTC1+4XbN/NQVFFs6KYoN0PD/P5kOilZy9JhPsuG2 [file] certified orthotist practice manager/DxD74ae1skvrbCVuFcLqI6HOBKLZNxtoy5fGW8yUWltbnKnExXnJkxhIiPDxTpS8kRNvq8P03ZqpR [file] 5q/nhP4E7A+y+BOYD/jwmd03Eo8EFtPC0Nw5glq4uL6 GG3TB+yiAH0LDRtA18nEXjzaNJbfjmbw1s8xiCf+iBGVpVG42bocC/xybMvh/laISHQAP2CeIl00OQzD b155kAhkp1xUV56i0aW60rpujINninFEfx+2qHxWsQGa2xqsiHzn6LLMC7p5imbTJy8+NY3Ns7yrs8a+ SbDg2Q48+ayRQjnmWqgS9l5ZCGLUT++arfPPh0uKzu ll1iQmV46OvEmU2xYq7QSIQF/vPDJXleBBunJpk06DNdDtPvY/uPV2vSZH1N18lO4Q8tRBJy/Sj8mFOa UlHXNfEFr2HGcR7gMlvroz24l08gkeG0lLwL8GTdlkIf5wKGB00m+ntFAZrLIW76UmSKhhDKfurtWAn5 sQ2m5U0zeaGAyyD/eJVEr487dE2eq4IzlNJSMxZ+drafter (cad) electronic zuPQLegF4BHUe64MUp3MgxUhR0MJfWRu6loPKiaFl643fh2LR7p1hOLUVQ6LJikFTlpkBBuXCGsu6OSF OGmzzXyimdMPVUjuucmfKMluhXRp31B+8m+csUKVuvhzRfd3itR/3gCjJTa8Kdvd7fNow1LhlW3myXSU jE4Wj07+79wyJ510oCHypJiFKfGASw90IDMj+Tlcvm xnGLOi18ajn3WEDUfAGwFEDsmIL5A0BquLO1tUHsBPsT2VpjCLELyITrOottGdNoodl079jccl2TrAv5 LnxPdfgqma2bpGfGxNz7MI5q4GwiE8iqQiyCyLZkV/3psJMijnFEnR5qAAkctvvGeKKxTmkmdbbwiiWN 5gOU5nJu+4ly37HXxx/2BlzEkOjqr08wAa3PkHRaJ1 Oo5/Coj3CTsWtbXE32mb/SzxRvIjmrnbJ59mjU1mCk1AlCH6BLxxP5bSdvgbRrtJ/Jeanne/WJKQSuMl39 930MOXrIXJ55qZSgaqp9rmxc7iid86p+GD9lQqqY282IwX4jzusq3nUlfewd2zX0Ehv1+ufFU17Un/ZI BksHdHQd1U/cuDlXXl69afX7KwEnIz7VMO9/6xJVkn oHQj2dIbqjgtLqBLjmNOQ2tbmfNo7Y/Uhc0tnaObxwB5w2dHU383BhRoQjt5+1qGdpTZ9h/vESRRwwWB wfBEjb37R550aVukCTOXxHX0Abo68/Yaa5f/bkLlw+/otJ4a57czM8EsCyVoMtk5Wz67MYRiqRUisgho Vpm7/BCFVtta6Xfk0axi9kve/SJanMDM9g/NpnCTBi xh32/2g1iZ5wkYlz7pvB6rxd7Mt8bn5vt2opwEJjszb7xOfiBTBn4AnCiaDaOi1lhaQrAPY4dfd8pXh+ gU8PucE7/AD5bxV/66nAjEd7FkVsovnYHJGb4glCtm9IcY7pj1f/354wcIdbOYaB8dzv3z0ntRfdhgIn J5aZk9W2lFdA0fiy8e+G4QaCMgWRU5Ra+VyGqji13q Y1dUQAb2UiGEfuC8NE4jbSLa58cwcrscfx9+JPlu+1PQG3mq0YhW9IXfqNkBMls2KUQLmXf2kk5bbvXL rlzHleXLud07WHBresu7nAN52fToD3xJiSDKw3nRXfScfyD9RwZJd6Plg/NGYlcHQ78ZINB6l6L06Z2J 78JryXUCOiqJzJqspdEHu9qH3uN9KVlahTI3fMf0vX +rjE0YGEtP71VPIgsuRLiqKmhzF1rAhtM4dR1kI3mDsZLzTy68vNGQvoANslTtSDERssMoebU4OUtwx2 0xVZ17XCikTzAY5/vO0HdmoRl5ZyUne9FMTvFfEHouDQymddPMANiNHtrFQ2HiNSBCfiqAwJbYdnvAo+ Sabine/kNy9b5nQ8yRV+RLcgmcbdE7EcHntDpdtPQyIBN [file] TB43gHk5Nlh2YRxbgMxRTdWxyL71STc4nUU+EWKXWPwWvs6Gpm0/KIKO+IYf9Ah8Pu8n37Qd5SIu3YZW7c TJToGwqrSq+8oOW8gJ/tAs8jqAeY80b3XFLQRS6Vjd CpHSKvuZwwOCXGRWP2+mA0ci8al1CIJwSMW+/zvL+FRd87WqtfEV2nRdnJMzGH/petrology teacher+zdj+ud0eJgFqj xJ67iR2lZf6yVi3pNHgSnRud7yHtFBSyiPjOw+b9jQ8RF17BA3ou2hPK+nqdfQyTvNR9EO6RLq8nULqn VGpXRXxaAuY3d6v/Qm3sk/2gITt17a9CbNNYW0xWZ/ 4M5CKmuBSwAp1WED7+wns4xbFVhOJxepeni+Uo02a2Trmt99iuZw7oPiupTPYif01gZEu4t3r9scIaBT aE6oxNjKfLaKV7vtd+gdYB5gbiJsaFusXinHTaZ9s2y+zkUKxvmhHKsE9nrtq4MTM419bAQDNliNMn6C wOjrdvT36BQG/NFL3LIEFoGk1Q+kfIj9b6+yxyU5SD V0CTyfPCpqJsuIYCP72k4Q/chdZ1gTkyhAOslWy7770xFsRCnDSkcE2T465k9nlY2WGH1C+oKHxPYF2I TMFNwyeuDxL0MR8cD10ENonXJk/zXL6DOrCIyztfxriAD5yPatYoksmmjCAf1KD/dE+gGIo3pH7v5oGO yQKTLFNpAW+aIl/KUDxnFw5Xfdqm6NsjQPgBv6+pv4 vky+jiN+9GKO8osdwqR2jnByKsq+qwRKVFNvQ0RY91Hgt1+S395Ntu2Df5yo/Mike/JgXK8pPVS+GiAFmN v5hmcIo6Hnd+frRRoi3s4LwqhR0Tar1WENriQtwmlu7YFgaTIRtF5wFToxWmX1Ild+1F/IRIdkb5z0Sv l0Gwdru1J3qVZnA2H1NHFmGGp+mtbyk9cNxUPSR20m fAVJXEkhYFqaqY1KhG5UNXQD5Vfsy+aN3PSV4c+LH2ZgYSfgMc+o+Fo6ViykcScvgNxrYAnqb7AhoF0T ZLqKz2+0avCQc+HQRbUEzPx/MpbatcboP1pm8F2nxuiteu9gGT4tFe4yvvlR8hpFXrV077XI1RsS12L2 obiI10/ai08Kh2tK1M2AuZzhKnYib556p9X09twURW wPfG8GL/residential/kDJ+swj/Gm4DuUsaUJKgfmogSZRyj64C/0wh3xYTofmH1dax7wzI0ikXEu/LrzoJRvB8 yVvEv292YXhQEjCGdcCMXG3TcMuDQwB/3c+PoZNYoNBj4NBpvVteR+DKuBjGdr5C0bQpl8Y7IZvWL3Vg qTlkijJtGwz/7nfSUcGTPO21+lQXeNo7LWQ/+YtbpH Sabine+Vi+IOn6QnflWmEshiYneESJDxoD/2jn5iov69qR8ibTAsjRUsoztOzjWjKff/5h3lpAIvA5YSclb [file] 7LyAWY3eJM74F3piskNVXOPzo8aj4OKiIqzH4wHkVrIrthw+z33FTbnJwxEtQ5f2yv7samUxxUhC/Gravity Prospecting Supervisor [file] 4z2ErIuVi2YIOxxJM7IJIQY1pshRixpWDMVLR5C+INTERMODAL OWNER OPERATOR TRUCK DRIVER [file] s8wGKkQN39xFXn2/fCw5A0Vc1pNviTX6rgkd3RwDkVhjSiAPuzsGWMBoDk2XWaKROzppgykyZjILP/FRONT OFFICE SPECIALIST [file] OWNER OPERATOR TRUCK DRIVER/cqU/yTH [file] vp organizational development+VCZYCOdVUOuU6icy+72uEmsNKxAoIRe5yunvUdx yD4FAsHP8f/vWYCbM+CWYITNglQhQF3jAZ5/C10AigIpnNT+6ze+kdt5QGWXbbrNKaKXe8pK1Sut1JBF 9mb1R8+naEiB9eYnoqxIMCmG3ktrcbzgyYA94iPUHdWgFwlM/+wjH5W+Qgqc/O/UIZx/uTVClfo2La19 UKEHmQHDrsFQ474AORC0N+zoKx5Ae9kw7LC80qiljK sdf36cdezv1pk2DNO77u8rr1HGS4rPtsD6inlCukMlolIkTGVbX4BexPxcnImVh6gkVACSsTSNVbC/PQ qocd01un+0olmen1MWEjxiCacIvmmS1yxL9bckxqK/zPa53ia/PmDkQ/gaHzM6J6uQU3JUm7v4/Er9jN AkH2E+wpD7KOhHC+aijcM2CIv6ak/AujsNeFudK0YO Paola+gCjnUvtwJ78YBJ0GbHjcEaWnkgjRsha6dypDM+Ge1dRaSVTEBp8fiqIGTrB8QOwD4tCMmsfnCrw/ [file] //BcUnOvsFdzBO3N5hBW5yv+ClG/ihKFQ5Hxrj [file] Tarik/Q7+Tve/sBtmI5LxA8ZSdPahSVDIjdd+IEfH5td7d9ISR2vC8G5yQII5SgfxUcTgSrYvisZxP6FO3I tN6fvRTQRBEPVSkcxRYfAibsJHes7W0Ed2p6E1xi6w y3/THlTqwq/JWYUdpgKI9FdZe0x2JMd9KAk/pEJK6ypvmBzjOM9Vtcd9XDqEeexRaGey3+0N96gZnptw r2tGFQl3d5seobFuRLNJ2se0FfLiG1OS5yuDRAKaeO4TUdTWA2glKUstAdcSIDOBt0ntGf9v37aEUxp/ [employer]NER [employer]ATOR [employer]IVER+rmBBe+DbpWl7TgfHH+/USta9LCjNdlOK9UQO0y5 [file] [id number]= ID Date Data Source [id number] 06/23/2020 07:46:00 AM EST [facility] ([facility]) Name Value Range Interpretation Code Description Data Lyndsey rce(s) Supporting Document(s) Calcidiol [Mass/volume] in Serum or Plasma 22.7 24.0-80.0 [facility] ([facility]) This test was performed using Fast[employer] I P Vitamin D immunoassay kit. Values obtained with different assay methods should not be used interchangeably. ID Date Data Source [id number] 06/23/2020 07:45:00 AM EST [facility] ([facility]) Name Value Range Interpretation Code Description Data Lyndsey rce(s) Supporting Document(s) Prostate specific Ag [Mass/volume] in Serum or Plasma 0.45 ng/mL [facility] ([facility]) This assay was performed on the Siemens Dimension EXL using the B- Galactosidase/CPRG methodology and should not be compared interchangeably with other methods. The PSA should not be used alone as a screening test for the presence or absence of malignant disease. ID Date Data Source [id number] 06/23/2020 07:45:00 AM EST [facility] ([facility]) Name Value Range Interpretation Code Description Data Lyndsey rce(s) Supporting Document(s) Triglyceride [Mass/volume] in Serum or Plasma 90 mg/dL 30-150 [facility] ([facility]) Cholesterol [Mass/volume] in Serum or Plasma 242 mg/dL 131-200 [facility] ([facility]) Cholesterol in HDL [Mass/volume] in Serum or Plasma 57 mg/dL 35-60 [facility] ([facility]) Cholesterol in LDL [Mass/volume] in Serum or Plasma by calcu lation 167 CALC 50-159 [facility] ([facility]) ID Date Data Source [id number] 06/23/2020 07:45:00 AM EST [facility] ([facility]) Name Value Range Interpretation Code Description Data Lyndsey rce(s) Supporting Document(s) Glucose [Mass/volume] in Serum or Plasma 98 mg/dL 74-99 [facility] ([facility]) 100-125 mg/dL PRE-DIABETES/FASTING >126 mg/dL DIABETES/FASTING Urea nitrogen [Mass/volume] in Serum or Plasma 17 mg/dL 7-18 [facility] ([facility]) Creatinine 1.2 mg/dL 0.6-1.3 [facility] Sodium [Moles/volume] in Serum or Plasma 142 meq/L 136-145 [facility] ([facility]) Chloride [Moles/volume] in Serum or Plasma 106 meq/L 98-107 [facility] ([facility]) Potassium [Moles/volume] in Serum or Plasma 4.4 meq/L 3.5-5.1 [facility] ([facility]) Carbon dioxide, total [Moles/volume] in Serum or Plasma 27 meq/L 21 -32 [facility] ([facility]) Calcium [Mass/volume] in Serum or Plasma 9.2 mg/dL 8.5-10.1 [facility] ([facility]) Alkaline phosphatase isoenzyme [Units/volume] in Serum or Pl asma 88 mg/dL 46-116 [facility] ([facility] Total Bilirubin 0.5 mg/dL 0.2-1.0 [facility] ([facility]) Aspartate aminotransferase [Enzymatic activity/volume] in Serum or Plasma 21 U/L 15-37 [facility] ([facility] ) Albumin [Mass/volume] in Serum or Plasma 3.9 g/dL 3.4-5.0 [facility] ([facility]) Alanine aminotransferase [Enzymatic activity/volume] in Seru m or Plasma 40 U/L 12-78 [facility] ([facility]) Proteinase 3 Ab [Units/volume] in Serum 6.8 g/dL 6.4-8.2 [facility] ([facility]) A/G Ratio 1.34 CALC 1.00-1.90 [facility] ([facility]) Glomerular filtration rate/1.73 sq M pre dicted among blacks [Volume Rate/Area] in Serum or Plasma by Creatinine-based formula (MDRD) Laboratory test result [facility] ([facility]) <content>CHRONIC KIDNEY DISEASE STAGING PER NKF</content>
<content></content>
<content>STAGE I & II GFR >= 60 NORMAL TO MILDLY DECREASED</content>
<content>STAGE III GFR 30-59 MODERATELY DECREASED</content>
<content>STAGE IV GFR 15-29 SEVERELY DECREASED</content>
<content>STAGE V GFR <15 VERY LITTLE GFR LEFT</content>
<content>ESRD GFR <15 ON TOOL PROCUREMENT COORDINATOR</content>
<content></content> Glomerular filtration rate/1.73 sq M pre dicted among non-blacks [Volume Rate/Area] in Serum or Plasma by Creatinine-based formula (MDRD) Laboratory test result [facility] ([facility] ) ID Date Data Source [id number] 02/27/2020 11:15:00 AM EDT [facility] Name Value Range Interpretation Code Description Data Lyndsey rce(s) Supporting Document(s) Follow Up [facility] QBMLYp8oBoRHVsTrPCHkJqvPBTflFIlhGLEpW9G9VYznCf0AHVndprPmIWYeAf1+IJMePK1xla3iJZOq gMy [file] nzq3vKTBq9gYqAw5uzIZUVWrer//Executive Steward+y/+i/3KHOovhkjHHGRxPS2XU6kwOlQU+i/OTb8cPxwE88CySY [file] zaheer+usc0TNNWqu1X+Pebbles/teqcw+ULk291gpf4kLiuQc r55G/MEFj3Z2OqxBNtYuxzW/m88ekzvg/+oYuqpSW/VXGpu7ifxCAGR7uR4hth5l/Pd225KeHECQmfHI CeYtbRXfMsyhlpeGCI+0hmpnEi4QSh9H7NY+9SswaUy7e8S+jn60ogTzKiEhoSf7zbH676g9rbOIl3Pz bUwRVm0A+SkTv/EIfoUZ12eWB6sLb9+wWijtuefiXi QmRdtSCxTdAxfDkZ7ftHYvBFRupNug+P/xatNZWk41C7fiHDVQg/WFzYjNe9i0GyIthcuiEwY5GA7wTS 1QlZAE7ZzZkw7sxPon8Mwk/fypGWb54IliYWw653M2K0ud0vpdAA+HgVx4Wjvm5BfWzpxrmoYXHDmsJ0 ZX5j3f2obBnuEuUU+INTERMODAL OWNER OPERATOR TRUCK DRIVER+O1+Bkeqkn4OhLt5FOadpmi j/ydS9wVlnyju1reSuNuTffmBp1bOwtUE08W5VACMhQM3Ymh3f8XpPGTC56xC4xg96h5NJMqw3uUgLOw XurQtoKBzpu71BL9vEUmqYgPj46C/qr3HnEvPh5Af4rhLJwFZ3NS+xko3727ECLYi6YAfYVtqTe7Vh6l PMAd2ydZlOpbf5HNrqGjx7ZrNXUrdyjKgDFw3DDP/u 3J7ySgE+L5gp37qT9v0NrJfj2eTvAIh/FvBu2ZUcZw76vgy3DwQgsbFCTMmFPOo0Y2ujrzDN5O8VJkEa MYf+BFvOhQKiHNI++NVcjzv7wTXrgzSyt5K1Mn7/psY6N1nM+Mk1Da6OS0HGlJ8Jv51W7T2In6Uz2th8 5E3XYsxL8ugo6SO8yGoskok3F1KhiwCjq032J/B80e 0QlZjZV2VtnNqF2KlK5yWTJu1r4BsqJK/jZXgc58x50zSbI/1v0xHX/rW4XhgQMg2kxlDruraAFe7XyJ xyigpPQNAtM1ScfwN7poO1BTTLEXle/g+rIaB4S3E+uPGnuTqNLS5EXfLSk92d0cMK8xTXmiEMR5IcmL hGdKHbN7im+DZLOWzx29TIvGPGkep9lTyq0W3kg6/1 ZWj3fTh+bMjjuDn39Eu49DJSG/n+FPxpY0me+Ctx0UMVCTnGRWrOvOUqUKyLXB1BpvGbzZY8PGwFsLyS VJ9Ei6CcJXsxfIxripFNahfA5tzN8jgRZ+o0b6bYkabdeHSfHBgn1w0kv/1eQ/76vlXS8mIX/MDaR1Vu q2aevfBTJmlzebc5w7bsZgdfF9Ccw6K3wnXMMjpjk2 yl2zIo5ixbYAEZzVUL5hmZR2WbUr6oqC+biOIEW1XX2CnVip2K3cdgVWude5f03oKr3skG2g8R0pVGDU Smy58EvX/qohRVvmzqTTEG/[place]lando/kBTp1VGMYytKgZomLDcgXbR7yAdwuMDg46aa3HVgnOo4NDrPgpeCn [file] vAT9nEwXn+HTcd5EFiP7yf09g/core stacker/lJy9kunZCT9RVWDwMPvJk8MwO1g0Hu90E29mdrQVgbGhapm02T SU6e+dx7FptUS4lqA2vFpoq3WS/3dQ/dnm36m2FWGjc4i2buqWv83nYTCZkU0NwILb8CZNgXyQBDK7XN 4AdwDK4r8L85uooErT6KDD/Beuphi3DDb5kQG8TGS+ C6odTk1zoQt6aF5f6FBByFPGDUDu2opNE3jmbHUgxLsa6Fx6cVxT61o2fy04WbOPZEXrbI3NTS2EE39x 1Qa+jQRamlQ1QPYz3HDXnDu/pB/627covhSs15r9J+vEDxF559kgCWa2q9+xwyT92ReLuaNGEkeTIKnn 25JN1sDoDru6z1NNIOd/cAwKhfySqa+/Np3Memu2HU zjDbZ+dl73kCRwonr54ggi1+6eI5EkD8X1SJWV/G8ubwia+/5BTcl1M/H3Y5Htq4D7NzNI6S6j7Z+N10 UCwPr7D7P51ZZ7PygdBU0q/aVo8jPNag/6NqsWujgdJy7yPowZ/He4aNyzWvrtMLJa3iYU7l4Z6f0ETf YGmamAnjDzt0AG5iY2Ns4zQ3yE/eelDyrxe2ydFM6E Lq7REfMT2H2I4MKOv551waIN8hzys8xV6SAOyL2oqIT4i2QrO8qlTiAo9ocPXojNCU+[place]+BnRqvhGWg [file] d3DmkGypIG1a8GYAqlFyGDJ3R0LC+7KY51Uofe8kkmDcMiazxAz0F0SuuVkjclLhfoBUxEgX+/certified orthotist practice manager+GEs [file] GtVlX/INTERMODAL OWNER OPERATOR TRUCK DRIVER/eNymxRnXiOKpDGMCcG7Hzsz/0YUpXEmuIoxpWAVVtV4qybmItuzY3jKi43HchBrW7H7spKX [file] xGKu2V8xF+vVNdSEcyZQ+mHd+HLDBzC7wd5vxdFFMieQoFFx2TrQEJrF5yCm+7CDwtP1KUDiaA+Rz/drafter (cad) electronic [file] uK2ZBepz+wA/crosscutter rolled glass+3eIbL9LCA8q3nAE+qswdfYu5O3o5kEPLIId/N0N/7w5TUjxTrHaAqZonrdW8CrXW [file] INTERMODAL OWNER OPERATOR TRUCK DRIVER+bYS833ihf0qZZbR4oBohJueaDPUWCMlFlZ3ctz7xRfClqX2snYUQdg1dSyBbfDdf4ph82791PyHZP /9MmHf+MqoV0f99OlVq9F+0Cz10kCZ+jtyWLVi8Rje clAd60Yhg6vnq0O2ItpyrxXg2PM6C3EE4+/6/rrfG/Z16fDjsWW67nyRG4uSF1Scs3+Ja9euVKQBlfcv OTJdGQs5g0LYOmE7LWB1zDbWfNxcsFnZSRq5So9ER2XvWRTlBfAoEZH6HgcGAPOy+x+P+ZEU+Qr3BMFE TUs2cM0cBetL8eNBOYQZyQqJKofGlzITCaSe0c89YM pIjZD8rVb0xEWJSIU29CZsWojq/mHWaMP+IvpU81/fzt08B6+v+Yu11Fa9gEIKhYw6qrfEekSengfTja 9f9c8rliTsxR+UMAp4xMyD6lw/JXOlqPv/rDLwWJuHt51JQiZS4Kt9m3znhkmNs4xx0J4WUmPYtUWZEs Yyol0PkY/2sD/Bf/ebSRXWTdA/LIvs3hGZ69TM0cG8 +MQpxDtla0JGlsUbAlP4EdYY8QyS/umKfEwbRWP+4bki8rIv1whbZUiBdG9DH4+455jVEqAA1/jGqX4Y 8p3/WsQjeSBDNsxe6jeHVZfdO0W4hyDqKs2gfWqUGjcpZTc92Vyo4v0hIkwM1ygQsDGZZEfCk7kVGHeq +blvYU38mlRdHseiQzbvZqzFFiU1T3U5iabjwXpcKW 2XyPj0d8TH16SzUC+YL6Ttlz8kPS9M76H499p9ivxPMfIeQ1su62ZM8zC8UBmUJjCxTJFKdGrinQfJ2K A42zJlhQFZdBOURp/klo27MMJv3STnMceziZnd1cHTk2OWFjqqk1eYKl4CvhFRmWzqo9vWWgzfE5PJT6 Lusvxu5AU+9BjoQEPwRua1WLJnkojrW1YbkxazjnNH [file] g7GYtrIjCHJF4/+zi6OoVRK1hT0t0g7VRPbrPE5872Fq+0NDYHHronwVSjjwBSjdgUn+5eT3QsKX+silk screen printer [file] nkQbWiWaPjzKJqf/TqfDSNjd5VjjeELUkx+MYRmzWilJAj6TgojgbWtapIvE5+UyUjm4KjFmO8cUc/Fire Fighters Dispatcher [file] RL/QrR6y2MCah9pkJ905Tb9WfcNN9dAgzyt1ALF+certified orthotist practice manager BBwK8kMReg1/Z/87fqj7h3ZaL0+5njRl+qlQwlXwEcYFV0g6yCnCii6mQgD9cE6b9BOEfbVNzaKvyrUs LD6TKQ2iA+n7neDTxSWMleMls3vQHOiHaOmqLsmNdY+rCMFhcDiu+6Ntj4eM+Langford+BikgpW5XPeYCQxGG [file] G3INvoDUfcDnXcegbok50JBkYO6P2Mjkxopj1rucad 63GZkDFkcqjgaiphiCZzggUoqPtZ5FQRWa5xdXN+ZQxcgqPzoJfS97/1XzjMHCSUxyY6yvVd+yX1sO1f 53uyH1HEWGtlEG5krajeEB7oiVf+y6Dllz8OZBftxc0LA97w8gUOBtmt2+f+nILCJmFBsmylGA3WMFey CVSFp09n01IHlEzehnZEG4XDncZYUT/IXvM5hkI7m/ TKQK2qTRwTWrHyeySb+I0fcOD62rg+QSLX4TCx/pvhVJxtenRsL5iggf4xx1Dcuau7TgK4lmfT722/0q y1+womJ0osFKIL3qluYHu9uyMN2ts7PUa8D/1u0yb1GsyyQ0gUwNtagM2RFyiVqjJHP5r/Gpk6ACI/vo gRrclCGSuhqE0JwvWJ0uQ04BFF5fM68fhlvz6QLzlg cBcWYj2Iz2doCQEo6Zq6y2Z5F/Tq/A9Fk08SGDf3ISMhTbEcGH+57HL0jB/qp+Gfm9jLjSqSGiUkBmoI /UVdEKNN0CfZmi87lzboEkvfxOzpoLskPfaIEHW5f18pi+TQaQtLK8ctlPepm9+jHzADd3s17r2PFx NG+W8sS7nlIHGAnmD95nvTo0DXaukqvl63CUH/Z/Fire Fighters Dispatcher [file] QuouaOpph8DGcgkFGUxlw7CP8tgOiLU5GIAqr9oaRi84i7OGmHfuHQo4/eewYNngff7DZfRqXJh4+engine repairer service [file] HeLCP6gi5isdvV2+wu5qSz5TAjZO710Mi892eR1QYOiuv5K2sd87qSLU0QPZAOxVVaDcuq4yb/[place]arian/[facility] [file] FM/4aDX4DH6NkedvieKnkkFXxfP9K83b2T9JKD8hh4cv5LfzbpxwyDVYmNTNGThNbQ6GO0cLOyfW+candy separator hard [file] dBvB/8+mSYFXoe8eEwx8STWD05XBs/eveQK0ZEO+CM63ZRaCf0kVgvUUzSFMXNZgPxLKp4R7u+6j+adolescent counselor [file] 1MlG3Tz4yk0n7bhZ/fF6vj68NHt7dvnsUafqNZ4ygCx4MulCD1mFdGphxAzEpENd6wW9Apa6uvuK/yard driver [file] GU5HZyYVZlUay0Ldy+g+cx/ckMF6/Oil Gauger+X2WeCNRkh [file] NCevMtH0WpuaTGwsSFZSNu== Procedure Social History No Information Vital Signs ID Date Data Source UNK Name Value Range Interpretation Code Description Data Source(s) Systolic blood pressure 122 mm[Hg] 122 mm[facility]Hg[facility] RT Arm Diastolic blood pressure 76 mm[Hg] 76 mm[Hg] [facility] ([facility]) RT Arm Heart rate 68 /min 68 /min [facility] ([facility]) Body height 71.50 [in_i] 71.50 [in_i] [facility] 5'11.50" Body weight 236.00 [lb_av] 236.00 [lb_av] [facility] ([facility]) Body mass index (BMI) [Ratio] 32.5 kg/m2 32.5 k g/m2 [facility] ([facility])
--- NOTE | 2021-03-10 11:47 | REP ---
INDICATION: Coronavirus workup. COMPARISON: 06/02/2016. TECHNIQUE: AP portable upright. FINDINGS: Lungs are well inflated. There is linear atelectatic change in patchy atelectasis or infiltrates both lower lung zones left greater than right. No effusion or dense consolidation with air bronchograms. Mid and upper lung zones grossly intact. Heart not grossly enlarged there is no duncan edema. Some pulmonary venous hypertension suggested with engorgement of upper lobe veins but no interstitial edema. Pulmonary arteries are prominent at the justin and taper rapidly suggesting pulmonary artery hypertension, likely on the basis of COPD. No aortic aneurysm. No widening of the mediastinum. The airway was intact. The visualized bones show some minor degenerative changes spine and shoulders. No free air under the diaphragm. IMPRESSION: 1. Some linear basilar atelectasis bilaterally and patchy atelectasis or infiltrates left greater than right. No dense consolidation or effusion. 2. No gross cardiomegaly but some pulmonary venous hypertension without edema. There is also pulmonary artery hypertension suggested. <Electronically signed by Sarabjit Villanueva > 03/10/21 0511
[2021-03-10 12:05] LABS: EOS % 0.4 % (0.0-3.0); HEMATOCRIT 45.7 % (42.0-52.0); HEMOGLOBIN 15.5 g/dl (13.5-17.5); LYMPH # 0.8 10^3/uL (1.5-5.0); LYMPH % 32.5 % (24.0-44.0); MEAN CORPUSCULAR HEMOGLOBIN 29.1 pg (27.0-33.0); MEAN CORPUSCULAR HGB CONC 33.9 g/dl (32.0-36.5); MEAN CORPUSCULAR VOLUME 85.9 fl (80.0-96.0); MONO # 0.3 10^3/uL (0.0-0.8); MONO % 11.9 % (2.0-8.0); NEUTROPHILS # 1.4 10^3/uL (1.5-8.5); NEUTROPHILS % 55.2 % (36.0-66.0); PLATELET COUNT, AUTOMATED 128 10^3/uL (150-450); RED BLOOD COUNT 5.32 10^6/uL (4.30-6.10); WHITE BLOOD COUNT 2.5 10^3/uL (4.0-10.0)
[2021-03-10 12:16] LABS: INR 0.86; PROTHROMBIN TIME 12.1 SECONDS (12.7-14.5)
[2021-03-10 12:17] LABS: PARTIAL THROMBOPLASTIN TIME 22.6 SECONDS (25.9-37.0)
[2021-03-10 12:20] LABS: D-DIMER QUANT 897.41 ng/ml (<500)
[2021-03-10 12:31] LABS: ALBUMIN 3.8 GM/DL (3.2-5.2); ALT/SGPT 46 U/L (12-78); BILIRUBIN,TOTAL 0.5 MG/DL (0.2-1.0); BLOOD UREA NITROGEN 13 MG/DL (7-18); C REACTIVE PROTEIN QUANTITATIV 1.72 MG/DL (0.00-0.30); CALCIUM LEVEL 8.6 MG/DL (8.8-10.2); CARBON DIOXIDE LEVEL 26 MEQ/L (21-32); CHLORIDE LEVEL 101 MEQ/L (98-107); CK-MB VALUE MASS 6.8 NG/ML (<3.6); CPK CREATINE PHOSPHOKINASE 480 U/L (39-308); CREATININE FOR GFR 1.09 MG/DL (0.70-1.30); FERRITIN 458 NG/ML (26-388); GLOMERULAR FILTRATION RATE > 60.0 (>49); GLUCOSE, FASTING 105 MG/DL (70-100); LDH LACTATE DEHYDROGENASE 302 U/L (87-241); MAGNESIUM LEVEL 2.2 MG/DL (1.8-2.4); MB/CK RELATIVE INDEX 1.42 (< OR =4); SODIUM LEVEL 134 MEQ/L (136-145); TOTAL PROTEIN 6.8 GM/DL (6.4-8.2); TROPONIN I < 0.02 NG/ML (< 0.10)
--- NOTE | 2021-03-10 13:41 | REP ---
INDICATION: severe headache, covid +. COMPARISON: MRI 07/10/2009. TECHNIQUE: Axial soft tissue and bone window images with coronal reconstructions provided. FINDINGS: Lateral ventricles are midline, symmetric and without dilatation or displacement. 3rd and 4th ventricles also unremarkable. I see no significant cerebral or cerebellar atrophy. Basal ganglia symmetric and normal there is no intra or extra-axial hemorrhage, mass or mass effect. Meredith cisterna magna or arachnoid cyst seen posteriorly unchanged. Cerebellum otherwise unremarkable. Mastoids, visualized sinuses, skull base and calvarium are all unremarkable. IMPRESSION: 1. No intracranial hemorrhage, acute infarct, mass, mass effect or edema. White matter tracts unremarkable. 2. Posterior fossa with a meredith cisterna magna or at arachnoid cyst but unchanged compared to 11 years ago. No acute intracranial finding. 3. Sinuses, mastoids, skull base and calvarium grossly unremarkable. <Electronically signed by Sarabjit Villanueva > 03/10/21 [id number]
[2021-03-10] MEDS ORDERED: ACETAMINOPHEN 325 MG TAB PO ONE (14:10)
[2021-03-10 14:35] VITALS: BP 130/74
--- NOTE | 2021-03-10 19:35 | ECGEPIP ---
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
== END 2021-03-10 15:35 | disposition home or self-care (01) ==
LOC: M ED 07:39
DX: R93.0 Abnormal findings on diagnostic imaging of skull and head, not elsewhere classified (principal); R91.8 Other nonspecific abnormal finding of lung field; J18.8 Other pneumonia, unspecified organism; U07.1 COVID-19; K21.9 Gastro-esophageal reflux disease without esophagitis; Z79.899 Other long term (current) drug therapy; Z88.1 Allergy status to other antibiotic agents; F17.210 Nicotine dependence, cigarettes, uncomplicated

== ENCOUNTER → 2021-03-10 | Outpatient (CLI) | payer MEDICARE ==
[~2021-03-10] MED LIST changes: +ADVITAB PO; +ALBUTEROL 90 MCG/ACT 8GM HFA INHALER INH PRN; +ALBUTEROL SULFATE 2.5 MG/0.5 ML INH NEB SOLN INH PRN; +BAMLANIVIMAB 700 MG, ETESEVIMAB 1,400 MG in NS 250 ML IV ONE; +CASIRIVIMAB (REGN10933) 600 MG, IMDEVIMAB (REGN10987) 600 MG in NS 250 ML IV ONE; +EPINEPHrine INJ 1 MG/ML 1ML AMP IM PRN; +NS 1,000 ML IV SCH; +diphenhydrAMINE 50MG/ML VIAL (J1200) IV PRN; +methylPREDNISolone 125MG 2ML VIAL IV PRN
--- NOTE | 2021-03-10 15:39 | HPEPDOC ---
[facility] Medical History & Physical Date of Admission Mar 10, 2021 Date of Service: Mar 10, 2021 Attending Physician: ZACH MARI DO History and Physical CHIEF COMPLAINT: Headache HISTORY OF PRESENT ILLNESS: Patient is a 65-year-old male who presents to the hospital with achievement of headache. Patient states he had cold-like symptoms with cough, congestion, and runny nose that started on 03/01/2021. Patient states he reported to his primary care provider's office on 03/02/2021 where the patient was told to take Claritin, Sudafed, and Flonase. Patient was not tested for COVID-19 at that time. After that day, patient started developing fevers and continue with his nonproductive cough, congestion, runny nose. Patient states that he started having a constant headache that would get better with ibuprofen but he decided come in today. Patient was found to be positive for COVID-19 on testing today. Patient denies any shortness of breath or chest pain. PAST MEDICAL HISTORY: 1. GERD. 2. Possible fatty liver. PAST SURGICAL HISTORY: 1. Appendectomy. SOCIAL HISTORY: Patient denies smoking cigarettes or using was a drug. Patient will occasionally use alcohol FAMILY HISTORY: Patient's father is healthy, patient mother has diabetes. ALLERGIES: Please see below. REVIEW OF SYSTEMS: General: Patient reports fevers last week but denies any recent fevers HEENT: Patient reports headaches as above Cardiovascular: Patient denies chest pain Respiratory: Patient reports nonproductive cough as above but denies any shortness of breath GI: Patient denies abdominal pain, nausea, vomiting, diarrhea : Patient denies increased frequency or pain with urination Extremities: Patient denies swelling or pain in extremities Neurological: Patient denies numbness or tingling in legs Skin: Patient denies any new rashes or lesions. Hematologic: Patient denies any easy bruising. Lymphatic: Patient denies any lumps lumps or bumps in neck, axilla, or groin HOME MEDICATIONS: Please see below. PHYSICAL EXAMINATION: VITAL SIGNS: Temperature 98.9, pulse 84, respiratory rate 20, blood pressure 130/74, pulse oximetry 95% on room air. General: Alert and oriented male patient who sitting up in bed when I walked in. Patient did not appear to be in any acute distress. HEENT: Normocephalic, atraumatic, moist mucous membranes. Neck: No lymphadenopathy or thyromegaly Cardiac: Regular rate and rhythm, no murmurs, normal S1, normal S2 Pulm: Clear to auscultation bilaterally. No wheezes, rhonchi, rales Abd: Nondistended, nontender to palpation, normal bowel sounds Ext: No edema bilateral lower extremities Neuro: Patient was able to move all 4 extremities on command and reported equal sensation light touch in all 4 extremities. Skin: Skin of the head, neck, upper and lower extremities was examined did not show any evidence of rash or wounds. LABORATORY DATA: See below. IMAGING: Chest x-ray performed on 03/10/2021 is reported to show some linear basilar atelectasis bilaterally and patchy atelectasis or infiltrates left greater than right. No dense consolidation or effusions. No gross cardiomegaly but some pulmonary venous hypertension without edema. There is also pulmonary artery hypertension suggested. CT of the head performed without contrast on 9020 was reported to show no intracranial hemorrhage, acute infarct, mass, mass-effect or edema. White matter tracts unremarkable. Posterior fossa with a Jaya cisterna magna or arachnoid cyst but unchanged compared to 11 years ago. No acute intracranial finding. Sinus, mastoids, skull base and calvarium are grossly unremarkable. MICROBIOLOGY: Please see below. ASSESSMENT: 65-year-old male who presented with 10-day history of [id number] symptoms who tested positive for COVID-19 today. . PLAN: 1. COVID-19. Risk and benefits of monoclonal antibody infusion have been discussed with the patient. Consent form has been signed. Advised the patient to make sure he stays hydrated. Patient should stop taking Sudafed but can continue taking other medications that were prescribed. Patient should avoid COVID-19 vaccination for 90 days after monoclonal infusion. Because patient is at the 10-day ailyn of his symptoms, patient will need a monoclonal infusion today. This was set up with pharmacy. Patient can receive influenza and Prevnar vaccines as patient does qualify for these. 2. Headache. This most likely secondary to COVID-19. Advised patient to make sure he is hydrated and continue taking Tylenol and/or ibuprofen as necessary. 3. Atelectasis in bilateral lung field seen on chest x-ray. I do not believe the patient has a bacterial pneumonia at this time. This may be secondary to COVID-19. This will need to be followed to resolution. Home Medications Scheduled Omeprazole (Omeprazole) 20 Mg Capsule.dr, 20 MG PO DAILY Scheduled PRN Ibuprofen/Pseudoephedrine HCl (Advil Cold & Sinus Caplet) 1 Each Tablet, 1 TAB PO for CONGESTION Allergies Coded Allergies: cefadroxil (Verified Allergy, Intermediate, PAIN/RASH, 09/24/18) cefdinir (Verified Allergy, Intermediate, PAIN/RASH, 09/24/18) A-FIB/CHADSVASC A-FIB History Current/History of A-Fib/PAF?: No ZACH MARI DO Mar 10, 2021 15:39
[2021-03-10 16:10] VITALS: BP 137/85
[2021-03-10 16:40] VITALS: BP 139/87
[2021-03-10 17:10] VITALS: BP 133/88
[2021-03-10 18:10] VITALS: BP 139/96
== END ==
LOC: M OPCLI4 15:00
PROVIDERS: ATTEND Nurse Practitioner Family
DX: U07.1 COVID-19 (principal); Z88.8 Allergy status to other drugs, medicaments and biological substances

== ENCOUNTER 2022-04-18 15:59 | Emergency (ER) | payer MEDICARE ==
[~2022-04-18] VITALS: Ht 180.3 cm; Wt 107.0 kg
[~2022-04-18 15:59] MED LIST changes: +ADVITAB PO; +OMEP-173 PO; -OMEP-218 PO
[2022-04-18 16:01] VITALS: BP 141/91
[2022-04-18] MEDS ORDERED: IBUPROFEN 600MG TAB PO ONE (16:15)
[2022-04-18] MEDS ORDERED: OXYMETAZOLINE 0.05% NASAL SPRAY (AFRIN) ONE (17:45)
[2022-04-18] MEDS ORDERED: ACETAMINOPHEN 500 MG TAB PO ONE (17:45)
== END 2022-04-18 18:45 | disposition home or self-care (01) ==
LOC: M ED 15:59
DX: U07.1 COVID-19 (principal); K21.9 Gastro-esophageal reflux disease without esophagitis; Z87.891 Personal history of nicotine dependence; Z79.899 Other long term (current) drug therapy; Z88.8 Allergy status to other drugs, medicaments and biological substances

== ENCOUNTER 2024-02-25 14:09 | Emergency (ER) | payer OTHER, MEDICARE ==
[~2024-02-25] VITALS: Ht 180.3 cm; Wt 109.1 kg
[2024-02-25 14:22] VITALS: TEMP 96.8
[2024-02-25] MEDS: MORPHINE 4 MG/ML 1ML VIAL IV PRN (14:53)
[2024-02-25] MEDS: ONDANSETRON 4MG 2ML VIAL IV ONE (14:53)
[2024-02-25 14:59] LABS: BASO % 0.5 % (0.0-1.0); EOS # 0.1 10^3/uL (0.0-0.5); EOS % 1.7 % (0.0-3.0); HEMATOCRIT 44.8 % (42.0-52.0); HEMOGLOBIN 15.1 g/dl (13.5-17.5); LYMPH # 1.3 10^3/uL (1.5-5.0); LYMPH % 17.1 % (24.0-44.0); MEAN CORPUSCULAR HGB CONC 33.7 g/dl (32.0-36.5); MONO # 0.5 10^3/uL (0.0-0.8); MONO % 7.1 % (2.0-8.0); NEUTROPHILS # 5.5 10^3/uL (1.5-8.5); NEUTROPHILS % 73.2 % (36.0-66.0); PLATELET COUNT, AUTOMATED 215 10^3/uL (150-450); RED BLOOD COUNT 5.21 10^6/uL (4.30-6.10); WHITE BLOOD COUNT 7.5 10^3/uL (4.0-10.0)
[2024-02-25 15:22] LABS: ALBUMIN 3.8 G/DL (3.2-5.2); ALKALINE PHOSPHATASE 82 U/L (40-129); ALT/SGPT 35 U/L (7.0-40); AST/SGOT 21 U/L (<34); BILIRUBIN,TOTAL 0.4 MG/DL (0.3-1.2); BLOOD UREA NITROGEN 15 MG/DL (9-23); CARBON DIOXIDE LEVEL 25 MMOL/L (20-31); CHLORIDE LEVEL 111 MMOL/L (98-107); CREATININE FOR GFR 1.05 MG/DL (0.70-1.30); GLOMERULAR FILTRATION RATE > 60.0 (>49); GLUCOSE, FASTING 106 MG/DL (74-106); POTASSIUM SERUM 4.1 MMOL/L (3.5-5.1); SODIUM LEVEL 141 MMOL/L (136-145); TOTAL PROTEIN 6.6 G/DL (5.7-8.2)
[2024-02-25] MEDS ORDERED: ISOVUE-370 76% 100ML VIAL As Ordered ONE (15:35)
[2024-02-25] MEDS: KETOROLAC 30 MG/ML 1ML VIAL IV ONE (16:33)
[2024-02-25] MEDS: PERCOCET 5MG/325MG TAB PO ONE (16:33)
[2024-02-25 17:00] VITALS: BP 144/87; O2SAT 94
[2024-02-25] MEDS ORDERED: PERC5TAB12 PO (17:21)
[2024-02-25 18:29] VITALS: O2SAT 95
== END 2024-02-25 18:34 | disposition home or self-care (01) ==
LOC: EDBD 14:09 → M ED 14:09
DX: S20.212A Contusion of left front wall of thorax, initial encounter (principal); S00.03XA Contusion of scalp, initial encounter; V89.2XXA Person injured in unspecified motor-vehicle accident, traffic, initial encounter; Y92.9 Unspecified place or not applicable; Y93.9 Activity, unspecified; Y99.9 Unspecified external cause status; R91.8 Other nonspecific abnormal finding of lung field; K76.0 Fatty (change of) liver, not elsewhere classified; K57.30 Diverticulosis of large intestine without perforation or abscess without bleeding; K21.9 Gastro-esophageal reflux disease without esophagitis; Z79.899 Other long term (current) drug therapy; Z88.1 Allergy status to other antibiotic agents
CPT/HCPCS: 70450; 71045; 71275; 72125; 74177; 80053; 84484; 85025; 93005; 96374; 96375; 99284; J1885; J2405; Q9967

== ENCOUNTER 2024-09-20 08:13 | Emergency (ER) | payer MEDICARE ==
[~2024-09-20] VITALS: Ht 177.8 cm; Wt 110.3 kg
[~2024-09-20 08:13] MED LIST changes: +PERC5TAB12 PO
[2024-09-20 08:16] VITALS: BP 163/88; TEMP 97.5; O2SAT 95
[2024-09-20] MEDS: DOXYCYCLINE HYCLATE 100MG TABLET PO ONE (11:31)
== END 2024-09-20 11:38 | disposition home or self-care (01) ==
LOC: M ED 08:13
DX: S20.362A Insect bite (nonvenomous) of left front wall of thorax, initial encounter (principal); W57.XXXA Bitten or stung by nonvenomous insect and other nonvenomous arthropods, initial encounter; Y92.007 Garden or yard of unspecified non-institutional (private) residence as the place of occurrence of the external cause; Y93.H2 Activity, gardening and landscaping; Y99.9 Unspecified external cause status; K76.0 Fatty (change of) liver, not elsewhere classified; K44.9 Diaphragmatic hernia without obstruction or gangrene; Z79.899 Other long term (current) drug therapy; Z88.0 Allergy status to penicillin; Z88.1 Allergy status to other antibiotic agents

== ENCOUNTER 2024-11-12 07:19 | Emergency (ER) | payer MEDICARE ==
[~2024-11-12] VITALS: Ht 180.3 cm; Wt 110.4 kg
[2024-11-12 07:28] VITALS: O2SAT 95
[2024-11-12] MEDS: KETOROLAC 60 MG/2 ML VIAL IM ONE (11:49)
[2024-11-12] MEDS: LIDOCAINE 5% PATCH TD ONE (11:49)
[2024-11-12 14:28] VITALS: TEMP 97.3
[2024-11-12] MEDS: ACETAMINOPHEN 325 MG TAB PO ONE (14:31)
[2024-11-12 15:00] VITALS: BP 182/106
[2024-11-12] MEDS ORDERED: METH-1164 PO (15:07)
[2024-11-12] MEDS ORDERED: LIDO1ADH93 TD (15:07)
== END 2024-11-12 15:13 | disposition home or self-care (01) ==
LOC: M ED 07:19
DX: M62.838 Other muscle spasm (principal); R03.0 Elevated blood-pressure reading, without diagnosis of hypertension; R00.1 Bradycardia, unspecified; K21.9 Gastro-esophageal reflux disease without esophagitis; Z88.1 Allergy status to other antibiotic agents; Z79.899 Other long term (current) drug therapy
CPT/HCPCS: 71045; 80047; 84484; 93005; 96372; 99284; J1885

== ENCOUNTER → 2024-12-14 | Outpatient (CLI) | payer MEDICARE ==
[~2024-12-14] MED LIST changes: +LIDO1ADH93 TD; +METH-1164 PO
== END ==
LOC: M PLAIMG 12:27
PROVIDERS: ATTEND Physician Assistant Surgical
DX: M47.22 Other spondylosis with radiculopathy, cervical region (principal)

== ENCOUNTER → 2025-04-19 | Outpatient (CLI) | payer MEDICARE | LOC: M RAD 08:28 | PROVIDERS: ATTEND Internal Medicine Gastroenterology | DX: I85.00 Esophageal varices without bleeding (principal) ==